=== PATIENT | female | born 1975 | race Two or more races ===

== ENCOUNTER 2024-04-09 09:31 | Outpatient (AMB) | payer MEDICAID, SELFPAY ==
[2024-04-09 10:30] VITALS: BP 148/87; PULSE 75; RESP 18; TEMP 36.7; O2SAT 98; BMI 38.8
--- NOTE | 2024-04-09 10:30 | ORTHONT_ITS ---
Vital signs 04/09/24 10:30 Height 1.57 m Height Method Measured Weight 96.303 kg Weight Measurement Method Standing Scale BMI 38.8 BP 148/87 H Blood Pressure Source Automatic Cuff Blood Pressure Location Right Upper Arm Position Sitting Respiration 18 Pulse 75 Pulse Source Monitor Temp 98.0 F Temp Source Temporal Artery Scan Pulse Oximetry (%) 98 Oxygen Delivery Method Room Air Med/Allergies Allergies & Medications Allergies No Known Drug Allergies Allergy (Verified 04/09/24 10:35) Medication Reconciliation Unobtainable 04/09/24 [History Confirmed 04/09/24] Exam Exam Patient is in no acute distress and is cooperative with the examination today. Breathing is nonlabored. In no respiratory distress. Bilateral extremities were evaluated and demonstrates sensation intact to light touch. Palpable pedal pulses are present. No significant edema is present. Bilateral hips were examined. The patient has no pain with log roll of the hips. Internal rotation to 30 degrees and external rotation to 30 degrees is painless. Negative FADIR. The left knee was examined. The left knee is in varus alignment. Range of motion from 0-115 degrees. Knee is stable to varus and valgus as well as AP translation with <5mm. Patient has a negative McMurrays. There is no pain with patellofemoral compression and no crepitus noted. The knee is tender to palpation medially. The right knee was also examined. The right knee is in varus alignment. Range of motion from 0-120 degrees. Knee is stable to varus and valgus as well as AP tr anslation with <5mm. Patient has a negative McMurrays. There is no pain with patellofemoral compression and no crepitus noted. The knee is tender to palpation medially. Assessment and Plan Problem List (1) Degenerative arthritis of knee, bilateral: Status: Acute Plan: Patient is a 48-year-old female with bilateral knee pain and bilateral knee arthritis. We will get new x-rays that are weightbearing. We do not have any x-ray reports for us to view here and all her prior x-rays were nonweightbearing. It sounds like she has tried anti-inflammatories and injections and they are no longer working. We will get new x-rays to see the severity of the arthritis and go from there. She is on the other side so we did discuss weight loss as well Office Procedures S Level of Care Nursing/Assessment Patient Status: Initial/New Patient Nursing Assessment/Reassesment: Medication Reconciliation, Update PMH in EMR and Vital Signs Coordination of Care: Complex Care and Chronic Disease 1-5, Education Complex Pt/Fam, Consent,records obtained, informed consent, 1 Ins Authorization, Lab and Imaging orders, Results/Orders obtained and Staff clarify orders New Patient Charge New Patient Point Assignment: [id number] New Patient Point Charge: SUPERVISOR CLOTH WINDING Level 4 ([id number]) MA Intake Visit Data Collection New Patient or Established: New Patient (never been to [facility]) Reason for Visit:: BILATERAL KNEE PAIN Seen by Clinical Staff ONLY (RN/MA): No Verbal consent obtained for Telemed visit?: No Ash Collector Required: Yes PCP or OBGYN visit in last 3 months: Yes Hx Now: No Do You Feel Safe at Home: Yes Authorities Contacted: N/A Questionairres Past Medical History Past Medical History Have you ever been diagnosed with any of the following: Subjective Visit Visit for: new patient and knee Immunization / Flu Flu Vaccine in the Last 12 Months: Yes Flu Vaccine Exclusion Criteria: Already Received History of Present Illness Chief complaint: BILATERAL KNEE PAIN Date of injury / onset of symptoms: 3 YEARS With patient is a 48-year-old female with bilateral knee pain. She is not working currently. She has had 3 injections in the past with the last one not working very well. She is on an unknown anti-inflammatory as well. The right knee pain is worse than the left. She reports the pain is excruciating is affecting her quality life and happiness Personal History Occupation: UNEMPLOYED Red flag PMH: BMI BMI Counceling provided: Yes Pain Pain level (0-10): 10 Pain duration: CONSTANT Pain location: inside (medial), outside (lateral), anterior and posterior Pain quality: sharp, dull, aching and burning Pain timing: increases with activity and stairs Associated signs & symptoms: stiffness Ambulatory data Ambulatory device: none Treatments Number of previous injections: 4 Improvement with previous injections: No Number of Physical Therapy sessions: 0 Improvement with PT: No Review of Systems Review of Systems: All systems negative unless otherwise noted in HPI.
== END 2024-04-09 10:37 | disposition home or self-care (01) ==
PROVIDERS: Supervising Provider Orthopaedic Surgery Adult Reconstructive Orthopaedic Surgery; Visit Provider Orthopaedic Surgery Adult Reconstructive Orthopaedic Surgery
DX: M17.0 Bilateral primary osteoarthritis of knee (principal); M25.562 Pain in left knee; M25.561 Pain in right knee
CPT/HCPCS: 99204; G0463

== ENCOUNTER 2024-04-23 11:16 | Outpatient (AMB) | payer MEDICAID, SELFPAY ==
--- NOTE | 2024-04-23 10:48 | PD.ORTHTELE ---
Med/Allergies Allergies & Medications Allergies No Known Drug Allergies Allergy (Verified 04/23/24 10:48) Medication Reconciliation Unobtainable 04/09/24 [History Confirmed 04/23/24] Subjective Visit Visit for: follow up visit and x-rays Immunization / Flu Flu Vaccine in the Last 12 Months: Yes Flu Vaccine Exclusion Criteria: Already Received History of Present Illness Chief complaint: F/U XRAYS Patient is a 48-year-old female with bilateral knee pain. She is here for x-rays results. We discussed that she has severe arthritis. She has tried injections in the past Pain Pain level (0-10): 8 Pain duration: ALL DAY Pain location: inside (medial), outside (lateral) and anterior Pain quality: sharp, dull and aching Pain timing: increases with activity Associated signs & symptoms: stiffness Ambulatory data Ambulatory device: cane Treatments Improvement with previous injections: No Improvement with PT: No Improvement with NSAIDS: no Review of Systems Review of Systems: All systems negative unless otherwise noted in HPI. Assessment and Plan Problem List (1) Degenerative arthritis of knee, bilateral: Status: Acute Plan: Patient is a 48-year-old female with bilateral knee pain and bilateral knee arthritis. We discussed both nonoperative and operative options. We will continue with conservative treatment including cortisone injections at this time. We will see her for follow-up of bilateral knee cortisone injections. She will need authorization for this. Office Procedures GNS Level of Care Nursing/Assessment Patient Status: Established Patient Nursing Assessment/Reassesment: Medication Reconciliation, Update PMH in EMR and Vital Signs Coordination of Care: Complex Care and Chronic Disease 1-5, Education Complex Pt/Fam, Consent,records obtained, informed consent, Results/Orders obtained and Staff clarify orders Special Needs: Language special needs Established Patient Charge Established Patient Point Assignment: 95 Telehealth Telemed Phone/Video with patient at home & Dr,PA,GEOTECHNICAL DEPARTMENT MANAGER: Yes
== END 2024-04-23 11:21 | disposition home or self-care (01) ==
LOC: HODSRG 11:16
PROVIDERS: PCP Physician Assistant; Referring Provider Physician Assistant; Supervising Provider Orthopaedic Surgery Adult Reconstructive Orthopaedic Surgery; Visit Provider Orthopaedic Surgery Adult Reconstructive Orthopaedic Surgery
DX: M17.0 Bilateral primary osteoarthritis of knee (principal); M25.562 Pain in left knee; M25.561 Pain in right knee
CPT/HCPCS: 99212; J3301; J3490; G0463

== ENCOUNTER 2024-05-13 14:06 | Outpatient (AMB) | payer MEDICAID, SELFPAY ==
--- NOTE | 2024-05-13 14:20 | ORTHONT_ITS ---
Vital signs 05/13/24 14:22 Height 1.57 m Height Method Stated Weight 98.486 kg Weight Measurement Method Standing Scale BMI 39.9 BP 142/83 H Blood Pressure Source Automatic Cuff Blood Pressure Location Left Upper Arm Position Sitting Respiration 19 Pulse 80 Pulse Source Monitor Temp 98.2 F Temp Source Temporal Artery Scan Pulse Oximetry (%) 96 Oxygen Delivery Method Room Air Med/Allergies Allergies & Medications Allergies No Known Drug Allergies Allergy (Verified 05/13/24 14:23) Medication Reconciliation Unobtainable 04/09/24 [History Confirmed 05/13/24] Exam Exam Patient is in no acute distress and is cooperative with the examination today. Breathing is nonlabored. In no respiratory distress. Bilateral extremities were evaluated and demonstrates sensation intact to light touch. Palpable pedal pulses are present. No significant edema is present. Bilateral hips were examined. The patient has no pain with log roll of the hips. Internal rotation to 30 degrees and external rotation to 30 degrees is painless. Negative FADIR. The left knee was examined. The left knee is in varus alignment. Range of motion from 0-115 degrees. Knee is stable to varus and valgus as well as AP translation with <5mm. Patient has a negative McMurrays. There is no pain with patellofemoral compression and no crepitus noted. The knee is tender to palpation medially. The right knee was also examined. The right knee is in varus alignment. Range of motion from 0-120 degrees. Knee is stable to varus and valgus as well as AP translation with <5mm. Patient has a negative McMurrays. There is no pain with patellofemoral compression and no crepitus noted. The knee is tender to palpation medially. Xrays demosntrate bilateral joint space narrowing and osteophytes Assessment and Plan Problem List (1) Degenerative arthritis of knee, bilateral: Status: Acute Plan: Patient is a 48-year-old female with bilateral knee pain and bilateral knee arthritis. We discussed both nonoperative and operative options. We will continue with conservative treatment including cortisone injections at this time. We will see her for follow-up of bilateral knee cortisone injections. Office Procedures GNS Level of Care Nursing/Assessment Patient Status: Established Patient Nursing Assessment/Reassesment: Medication Reconciliation, Update PMH in EMR and Vital Signs Coordination of Care: Complex Care and Chronic Disease 1-5, Education Complex Pt/Fam, Consent,records obtained, informed consent, Results/Orders obtained and Staff clarify orders Established Patient Charge Established Patient Point Assignment: 95 Established Patient Point Charge: EP Level 3 (80-115) Questionairres Past Medical History Past Medical History Have you ever been diagnosed with any of the following: Subjective Visit Visit for: new patient and knee Immunization / Flu Flu Vaccine in the Last 12 Months: Yes Flu Vaccine Exclusion Criteria: Already Received History of Present Illness Chief complaint: BILATERAL KNEE PAIN Date of injury / onset of symptoms: 3 YEARS With patient is a 48-year-old female with bilateral knee pain. She is not working currently. She has had 3 injections in the past with the last one not working very well. She is on an unknown anti-inflammatory as well. The right knee pain is worse than the left. She reports the pain is excruciating is affecting her quality life and happiness Personal History Occupation: UNEMPLOYED Red flag PMH: BMI BMI Counceling provided: Yes Pain Pain level (0-10): 10 Pain duration: CONSTANT Pain location: inside (medial), outside (lateral), anterior and posterior Pain quality: sharp, dull, aching and burning Pain timing: increases with activity and stairs Associated signs & symptoms: stiffness Ambulatory data Ambulatory device: none Treatments Number of previous injections: 4 Improvement with previous injections: No Number of Physical Therapy sessions: 0 Improvement with PT: No Review of Systems Review of Systems: All systems negative unless otherwise noted in HPI.
--- NOTE | 2024-05-13 14:21 | ORTHONT_ITS ---
Vital signs 05/13/24 14:22 Height 1.57 m Height Method Stated Weight 98.486 kg Weight Measurement Method Standing Scale BMI 39.9 BP 142/83 H Blood Pressure Source Automatic Cuff Blood Pressure Location Left Upper Arm Position Sitting Respiration 19 Pulse 80 Pulse Source Monitor Temp 98.2 F Temp Source Temporal Artery Scan Pulse Oximetry (%) 96 Oxygen Delivery Method Room Air Med/Allergies Allergies & Medications Allergies No Known Drug Allergies Allergy (Verified 05/13/24 14:23) Medication Reconciliation Unobtainable 04/09/24 [History Confirmed 05/13/24] Exam Exam Patient is in no acute distress and is cooperative with the examination today. Breathing is nonlabored. In no respiratory distress. Bilateral extremities were evaluated and demonstrates sensation intact to light touch. Palpable pedal pulses are present. No significant edema is present. Bilateral hips were examined. The patient has no pain with log roll of the hips. Internal rotation to 30 degrees and external rotation to 30 degrees is painless. Negative FADIR. The left knee was examined. The left knee is in varus alignment. Range of motion from 0-115 degrees. Knee is stable to varus and valgus as well as AP translation with <5mm. Patient has a negative McMurrays. There is no pain with patellofemoral compression and no crepitus noted. The knee is tender to palpation medially. The right knee was also examined. The right knee is in varus alignment. Range of motion from 0-120 degrees. Knee is stable to varus and valgus as well as AP translation with <5mm. Patient has a negative McMurrays. There is no pain with patellofemoral compression and no crepitus noted. The knee is tender to palpation medially. Xrays demosntrate bilateral joint space narrowing and osteophytes Assessment and Plan Problem List (1) Degenerative arthritis of knee, bilateral: Status: Acute Plan: Patient is a 48-year-old female with bilateral knee pain and bilateral knee arthritis. We discussed both nonoperative and operative options. We will continue with conservative treatment including cortisone injections at this time. Recommend knee cortisone injections as patient would like to proceed with conservative treatment at this time. The risks and benefits of the procedure were reviewed with the patient and patient gave verbal consent to continue with the procedure. Procedure: performed by Dr. Lane Using sterile technique the Bilateral knees were thoroughly prepped with alcohol, and approximately 1 cc of Kenalog 40 mg/mL and 4 cc of 1% lidocaine was injected into each knee without resistance into the medial tibial femoral joint space. The patient tolerated the procedure. Office Procedures GNS Level of Care Nursing/Assessment Patient Status: Established Patient Nursing Assessment/Reassesment: Medication Reconciliation, Update PMH in EMR and Vital Signs Coordination of Care: Complex Care and Chronic Disease 1-5, Education Complex Pt/Fam, Consent,records obtained, informed consent, Results/Orders obtained and Staff clarify orders Established Patient Charge Established Patient Point Assignment: 95 Established Patient Point Charge: EP Level 3 (80-115) Surgical Proc/IM SQ injection Major Surgical Procedure: Yes (BILATERAL KNEE INJECTION) Medication Given Medication Given Medication Given: Yes Documented Dose Given: 8 Route: Infiitration Medication Given Medication Given Medication Given: Yes Documented Dose Given: 2 Route: Infiitration Office Meds Xylocaine 10 mg/mL (1 %) injection solution Performing Provider: Margarito Lane MD Performing Location: [facility] Administered by: Margarito Lane MD on 05/13/24 14:24 Dose Route Admin Location Dispensed Lot Number Expiration Date [facility] Extrusion Engineer 40 mL Infiltration 40 mL [id number] 07/29/27 05840-763-43 [facility] triamcinolone acetonide 40 mg/mL suspension for injection Performing Provider: Margarito Lane MD Performing Location: [facility] Administered by: Margarito Lane MD on 05/13/24 14:24 Dose Route Admin Location Dispensed Lot Number Expiration Date [facility] Extrusion Engineer 80 mg intra-articular 2 mL [id number] 08/27/25 4223-9779-15 [facility] [place] Intake Visit Data Collection New Patient or Established: Established Patient (seen at [facility] within 3 years) Reason for Visit:: BILATERAL KNEE PAIN/XRAY RESULTS/REQ INJ Seen by Clinical Staff ONLY (RN/MA): No Credit Clerk Required: Yes PCP or OBGYN visit in last 3 months: Yes Hx Now: No Do You Feel Safe at Home: Yes Authorities Contacted: N/A Questionairres Past Medical History Past Medical History Have you ever been diagnosed with any of the following: Subjective Visit Visit for: follow up visit, knee (BILATERAL) and x-rays (RESULTS) Immunization / Flu Flu Vaccine in the Last 12 Months: No Flu Vaccine Exclusion Criteria: No Exclusion Criteria History of Present Illness Chief complaint: BILATERAL KNEE PAIN Date of injury / onset of symptoms: 3 YEARS With patient is a 48-year-old female with bilateral knee pain. She is not working currently. She has had 3 injections in the past with the last one not working very well. She is on an unknown anti-inflammatory as well. The right knee pain is worse than the left. She reports the pain is excruciating is affecting her quality life and happiness Personal History Occupation: UNEMPLOYED Red flag PMH: BMI BMI Counceling provided: Yes Pain Pain level (0-10): 8 Pain duration: ALL DAY Pain location: inside (medial) and anterior Pain quality: dull and aching Pain timing: night, increases with activity and stairs Associated signs & symptoms: weakness Ambulatory data Ambulatory device: none Treatments Number of previous injections: 4 Improvement with previous injections: No Number of Physical Therapy sessions: 0 Improvement with PT: No Improvement with NSAIDS: no Review of Systems Review of Systems: All systems negative unless otherwise noted in HPI.
[2024-05-13 14:22] VITALS: BP 142/83; PULSE 80; RESP 19; TEMP 36.8; O2SAT 96; BMI 39.9
== END 2024-05-13 14:29 | disposition home or self-care (01) ==
LOC: HODSRG 14:06
PROVIDERS: PCP Physician Assistant; Referring Provider Physician Assistant; Supervising Provider Orthopaedic Surgery Adult Reconstructive Orthopaedic Surgery; Visit Provider Orthopaedic Surgery Adult Reconstructive Orthopaedic Surgery
DX: M17.0 Bilateral primary osteoarthritis of knee (principal); M25.562 Pain in left knee; M25.561 Pain in right knee
CPT/HCPCS: 20610; 99213; J3301; J3490; G0463

== ENCOUNTER 2024-06-04 14:37 | Outpatient (AMB) | payer MEDICAID, SELFPAY ==
--- NOTE | 2024-06-04 12:01 | ORTHONT_ITS ---
Med/Allergies Allergies & Medications Allergies No Known Drug Allergies Allergy (Verified 06/04/24 12:02) Medication Reconciliation Unobtainable 04/09/24 [History Confirmed 06/04/24] Subjective Visit Visit for: follow up visit and knee Immunization / Flu Flu Vaccine in the Last 12 Months: No Flu Vaccine Exclusion Criteria: No Exclusion Criteria History of Present Illness Chief complaint: Bilateral knee pain Ha is a pleasant 48-year-old female with bilateral knee pain and bilateral knee arthritis. We discussed nonoperative treatment including anti- inflammatories injections. She is failed conservative treatment including injections in the past. She reports that is now 3 weeks later the injections have provided very minimal relief. She is here to discuss surgical options on the phone. Pain Pain level (0-10): 9 Pain duration: ALL DAY Pain location: inside (medial) and anterior Pain quality: sharp, dull and aching Pain timing: increases with activity and stairs Associated signs & symptoms: none Ambulatory data Ambulatory device: none Treatments Improvement with previous injections: No Improvement with PT: No Improvement with NSAIDS: no Review of Systems Review of Systems: All systems negative unless otherwise noted in HPI. Assessment and Plan Problem List (1) Degenerative arthritis of knee, bilateral: Status: Acute Plan: Patient is a 48-year-old female with bilateral knee pain and bilateral knee arthritis. We discussed both nonoperative and operative options. She has severe arthritis on x-rays and is failed conservative treatment. The pain she reports is miserable and she is looking for surgical treatment option. We thus discussed total knee replacement is a reasonable option. I would like to see her in person as we will need to have a lengthy discussion that she is on the younger side for a total knee replacement. Office Procedures GNS Level of Care Nursing/Assessment Patient Status: Established Patient Nursing Assessment/Reassesment: Medication Reconciliation, Update PMH in EMR and Vital Signs Coordination of Care: Complex Care and Chronic Disease 1-5, Education Complex Pt/Fam, Consent,records obtained, informed consent, Results/Orders obtained and Staff clarify orders Special Needs: Language special needs Established Patient Charge Established Patient Point Assignment: 95 Telehealth Telemed Phone/Video with patient at home & Dr,PA,SALES PROPERTY MANAGER: Yes
== END 2024-06-04 14:59 | disposition home or self-care (01) ==
LOC: HODSRG 14:37
PROVIDERS: PCP Physician Assistant; Referring Provider Physician Assistant; Supervising Provider Orthopaedic Surgery Adult Reconstructive Orthopaedic Surgery; Visit Provider Orthopaedic Surgery Adult Reconstructive Orthopaedic Surgery
DX: M17.0 Bilateral primary osteoarthritis of knee (principal)
CPT/HCPCS: 99212; G0463

== ENCOUNTER 2024-06-22 08:26 | Outpatient (AMB) | payer MEDICAID, SELFPAY ==
[2024-06-22 08:36] VITALS: BP 138/82; PULSE 63; RESP 19; TEMP 37.4; O2SAT 99; BMI 38.9
--- NOTE | 2024-06-22 08:36 | PD.ORTHCLVIS ---
Vital signs 06/22/24 08:36 Height 1.57 m Height Method Measured Weight 95.906 kg Weight Measurement Method Standing Scale BMI 38.9 BP 138/82 H Blood Pressure Source Automatic Cuff Blood Pressure Location Left Upper Arm Position Sitting Respiration 19 Pulse 63 Pulse Source Monitor Temp 99.4 F Temp Source Oral Pulse Oximetry (%) 99 Oxygen Delivery Method Room Air Med/Allergies Allergies & Medications Allergies No Known Drug Allergies Allergy (Verified 06/22/24 08:37) Medication Reconciliation Unobtainable 04/09/24 [History Confirmed 06/22/24] Exam Exam Patient is in no acute distress and is cooperative with the examination today. Breathing is nonlabored. In no respiratory distress. Bilateral extremities were evaluated and demonstrates sensation intact to light touch. Palpable pedal pulses are present. No significant edema is present. Bilateral hips were examined. The patient has no pain with log roll of the hips. Internal rotation to 30 degrees and external rotation to 30 degrees is painless. Negative FADIR. The left knee was examined. The left knee is in varus alignment. Range of motion from 0-115 degrees. Knee is stable to varus and valgus as well as AP translation with <5mm. Patient has a negative McMurrays. There is no pain with patellofemoral compression and no crepitus noted. The knee is tender to palpation medially. The right knee was also examined. The right knee is in varus alignment. Range of motion from 0-120 degrees. Knee is stable to varus and valgus as well as AP translation with <5mm. Patient has a negative McMurrays. There is no pain with patellofemoral compression and no crepitus noted. The knee is tender to palpation medially. Xrays demonstrate bilateral joint space narrowing and complete obliteration of the medial joint space and osteophytes with varus deformity Assessment and Plan Problem List (1) Degenerative arthritis of knee, bilateral: Status: Acute Plan: Patient is a 48-year-old female with bilateral knee pain and bilateral knee arthritis. We discussed both nonoperative and operative options. She has severe arthritis on x-rays and has failed conservative treatment including weight loss, NSAIDs, and multiple cortisone injections. The pain she reports is miserable and she is looking for surgical treatment option. We thus discussed total knee replacement is a reasonable option but that she is on the young side and is at high risk for revision in the future due to her age. We will start on the right side as this is worse. The nature and purpose of the total knee replacement, alternative method(s) of treatment, the material risks involved, and the possibility of complications were fully explained to the patient. The patient does NOT have any of the following contraindications to TKA: - Active infection of the knee joint, OR - Active systemic bacteremia, OR - Active skin infection or open wound at surgical site, OR - Neuropathic arthritis, OR - Severe, rapidly progressive neurological disease, OR - Severe medical condition that makes risks of surgery outweigh the potential benefit The patient was told the most common risks and complications associated with a total knee replacement include, but are not limited to: blood clots in the leg, fatal pulmonary embolism, dislocation of the prosthesis, intraoperative and postoperative fractures of the femur or tibia, infection, failure of the prosthesis or grafting materials, complications from anesthesia, reactions to blood transfusions, postoperative leg length inequality, instability of the knee replacement, nerve damage or injury, vascular injury, delayed wound healing, infection, other injury or even . In addition, there are risks associated with anesthesia given during this operation. Also, the patient was told that after undergoing a total knee replacement there may still be persistent pain or disability. The patient was informed that the success of this operation in part depends upon the mechanical devices which are going to be implanted and that these devices can fail or malfunction, and may need to be repaired or replaced and there are no guarantees as to the longevity of this device or its parts and that it or its parts could fail prematurely. The patient was also notified that during the course of surgery, there may be a need to use bone graft from donors, and that any bone graft used will be carefully screened for communicable diseases, including AIDS, hepatitis, Colton-Creutzfeldt, or other diseases, but despite the screening procedures, there is a small chance that they could contract one of these diseases. Finally, the patient was asked to follow completely and fully with all advice and recommended treatments, and that recovery and ultimate outcome are affected by their compliance with recommended treatment. We discussed the risks, benefits and treatment alternatives, and the patient is interested in proceeding with surgery. We will try to set this up as expeditiously as possible. Office Procedures GNS Level of Care Nursing/Assessment Patient Status: Established Patient Nursing Assessment/Reassesment: Medication Reconciliation, Update PMH in EMR and Vital Signs Coordination of Care: Complex Care/Chronic Disease 5 or more, Education Complex Pt/Fam, Consent,records obtained, informed consent and Staff clarify orders Special Needs: Language special needs Established Patient Charge Established Patient Point Assignment: 100 Established Patient Point Charge: EP Level 3 (80-115) MA Intake Visit Data Collection New Patient or Established: Established Patient (seen at [facility] within 3 years) Reason for Visit:: FOLLOW UP BILATERAL KNEE PAIN Computer Systems Consultant Required: Yes Computer Systems Consultant's name/title: RIVERA DE OLIVEIRA MA Do You Feel Safe at Home: Yes Questionairres Past Medical History Past Medical History Have you ever been diagnosed with any of the following: Respiratory Problems Smoking: No Subjective Visit Visit for: follow up visit, knee (BILATERAL) and x-rays (RESULTS) Immunization / Flu Flu Vaccine in the Last 12 Months: No Flu Vaccine Exclusion Criteria: No Exclusion Criteria History of Present Illness Chief complaint: BILATERAL KNEE PAIN Date of injury / onset of symptoms: 3 YEARS With patient is a 48-year-old female with bilateral knee pain of approximately equal severity. She is not working currently. She has had over 5 injections in the past with the last one not working very long. She is on multiple antiinflammatories and has failed physical therapy in the past. She has also triedf to lose weight. The right knee pain is worse than the left. She reports the pain is excruciating is affecting her quality life and happiness Personal History Occupation: UNEMPLOYED Red flag PMH: BMI and none BMI Counceling provided: Yes Pain Pain level (0-10): 8 Pain duration: ALL DAY Pain location: inside (medial) and anterior Pain quality: dull, aching and tingling Pain timing: night, increases with activity and stairs Associated signs & symptoms: weakness and none Ambulatory data Ambulatory device: none Treatments Number of previous injections: 4 Improvement with previous injections: No Number of Physical Therapy sessions: 0 Improvement with PT: No Improvement with NSAIDS: no Review of Systems Review of Systems: All systems negative unless otherwise noted in HPI.
== END 2024-06-22 08:44 | disposition home or self-care (01) ==
LOC: HODSRG 08:26
PROVIDERS: PCP Physician Assistant; Referring Provider Physician Assistant; Supervising Provider Orthopaedic Surgery Adult Reconstructive Orthopaedic Surgery; Visit Provider Orthopaedic Surgery Adult Reconstructive Orthopaedic Surgery
DX: M17.0 Bilateral primary osteoarthritis of knee (principal); M25.562 Pain in left knee; M25.561 Pain in right knee
CPT/HCPCS: 99213; G0463

== ENCOUNTER 2024-07-12 13:08 | Outpatient (AMB) | payer MEDICAID, SELFPAY ==
[2024-07-12 13:18] VITALS: BP 134/77; PULSE 65; RESP 19; TEMP 36.9; O2SAT 19; BMI 39.2
--- NOTE | 2024-07-12 13:18 | ORTHONT_ITS ---
Vital signs 07/12/24 13:18 Height 1.57 m Height Method Stated Weight 96.644 kg Weight Measurement Method Standing Scale BMI 39.2 BP 134/77 H Blood Pressure Source Automatic Cuff Blood Pressure Location Right Upper Arm Position Sitting Respiration 19 Pulse 65 Pulse Source Monitor Temp 98.4 F Temp Source Oral Pulse Oximetry (%) 19 L Oxygen Delivery Method Room Air Med/Allergies Allergies & Medications Allergies No Known Drug Allergies Allergy (Verified 07/12/24 13:19) Medication Reconciliation Unobtainable 04/09/24 [History Confirmed 07/12/24] Exam Exam Patient is in no acute distress and is cooperative with the examination today. Breathing is nonlabored. In no respiratory distress. Bilateral extremities were evaluated and demonstrates sensation intact to light touch. Palpable pedal pulses are present. No significant edema is present. Bilateral hips were examined. The patient has no pain with log roll of the hips. Internal rotation to 30 degrees and external rotation to 30 degrees is painless. Negative FADIR. The left knee was examined. The left knee is in varus alignment. Range of motion from 0-115 degrees. Knee is stable to varus and valgus as well as AP translation with <5mm. Patient has a negative McMurrays. There is no pain with patellofemoral compression and no crepitus noted. The knee is tender to palpation medially. The right knee was also examined. The right knee is in varus alignment. Range of motion from 0-120 degrees. Knee is stable to varus and valgus as well as AP translation with <5mm. Patient has a negative McMurrays. There is no pain with patellofemoral compression and no crepitus noted. The knee is tender to palpation medially. Xrays demonstrate bilateral joint space narrowing and complete obliteration of the medial joint space and osteophytes with varus deformity Assessment and Plan Problem List (1) Degenerative arthritis of knee, bilateral: Status: Acute Plan: Patient is a 48-year-old female with bilateral knee pain and bilateral knee arthritis. We discussed both nonoperative and operative options. She has severe arthritis on x-rays and has failed conservative treatment including weight loss, NSAIDs, and multiple cortisone injections. The pain she reports is miserable and she is looking for surgical treatment option. We thus discussed total knee replacement is a reasonable option but that she is on the young side and is at high risk for revision in the future due to her age. We will start on the right side as this is worse. The nature and purpose of the total knee replacement, alternative method(s) of treatment, the material risks involved, and the possibility of complications were fully explained to the patient. The patient does NOT have any of the following contraindications to TKA: - Active infection of the knee joint, OR - Active systemic bacteremia, OR - Active skin infection or open wound at surgical site, OR - Neuropathic arthritis, OR - Severe, rapidly progressive neurological disease, OR - Severe medical condition that makes risks of surgery outweigh the potential benefit The patient was told the most common risks and complications associated with a total knee replacement include, but are not limited to: blood clots in the leg, fatal pulmonary embolism, dislocation of the prosthesis, intraoperative and postoperative fractures of the femur or tibia, infection, failure of the prosthesis or grafting materials, complications from anesthesia, reactions to blood transfusions, postoperative leg length inequality, instability of the knee replacement, nerve damage or injury, vascular injury, delayed wound healing, infection, other injury or even . In addition, there are risks associated with anesthesia given during this operation. Also, the patient was told that after undergoing a total knee replacement there may still be persistent pain or disability. The patient was informed that the success of this operation in part depends upon the mechanical devices which are going to be implanted and that these devices can fail or malfunction, and may need to be repaired or replaced and there are no guarantees as to the longevity of this device or its parts and that it or its parts could fail prematurely. The patient was also notified that during the course of surgery, there may be a need to use bone graft from donors, and that any bone graft used will be carefully screened for communicable diseases, including AIDS, hepatitis, Colton-Creutzfeldt, or other diseases, but despite the screening procedures, there is a small chance that they could contract one of these diseases. Finally, the patient was asked to follow completely and fully with all advice and recommended treatments, and that recovery and ultimate outcome are affected by their compliance with recommended treatment. We discussed the risks, benefits and treatment alternatives, and the patient is interested in proceeding with surgery. We will try to set this up as expeditiously as possible. Office Procedures GNS Level of Care Nursing/Assessment Patient Status: Established Patient Nursing Assessment/Reassesment: Medication Reconciliation, Update PMH in EMR and Vital Signs Coordination of Care: Complex Care/Chronic Disease 5 or more, Education Complex Pt/Fam, Consent,records obtained, informed consent, Results/Orders obtained and Staff clarify orders Established Patient Charge Established Patient Point Assignment: 105 Established Patient Point Charge: EP Level 3 (80-115) MA Intake Visit Data Collection New Patient or Established: Established Patient (seen at [facility] within 3 years) Reason for Visit:: PRE OP RIGHT TKA Heel Attacher Wood Required: Yes Heel Attacher Wood's name/title: DAUGHTER Do You Feel Safe at Home: Yes Questionairres Past Medical History Past Medical History Have you ever been diagnosed with any of the following: Respiratory Problems Smoking: No Subjective Visit Visit for: follow up visit and knee Immunization / Flu Flu Vaccine in the Last 12 Months: No Flu Vaccine Exclusion Criteria: No Exclusion Criteria History of Present Illness Chief complaint: PRE OOP RIGHT TKA Date of injury / onset of symptoms: 3 YEARS With patient is a 48-year-old female with bilateral knee pain of approximately equal severity. She is not working currently. She has had over 5 injections in the past with the last one not working very long. She is on multiple antiinflammatories and has failed physical therapy in the past. She has also triedf to lose weight. The right knee pain is worse than the left. She reports the pain is excruciating is affecting her quality life and happiness Personal History Occupation: UNEMPLOYED Red flag PMH: none BMI Counceling provided: Yes Pain Pain level (0-10): 8 Pain duration: CONSTANT Pain location: inside (medial) and outside (lateral) Pain quality: dull, aching and tingling Pain timing: night, increases with activity and stairs Associated signs & symptoms: none Ambulatory data Ambulatory device: none Treatments Number of previous injections: 4 Improvement with previous injections: No Number of Physical Therapy sessions: 0 Improvement with PT: No Improvement with NSAIDS: no Review of Systems Review of Systems: All systems negative unless otherwise noted in HPI.
== END 2024-07-12 13:40 | disposition home or self-care (01) ==
LOC: HODSRG 13:08
PROVIDERS: PCP Physician Assistant; Referring Provider Physician Assistant; Supervising Provider Orthopaedic Surgery Adult Reconstructive Orthopaedic Surgery; Visit Provider Orthopaedic Surgery Adult Reconstructive Orthopaedic Surgery
DX: M17.0 Bilateral primary osteoarthritis of knee (principal); M25.562 Pain in left knee; M25.561 Pain in right knee
CPT/HCPCS: 99213; G0463

== ENCOUNTER → 2024-07-12 | Outpatient (CLI) | payer MEDICAID, SELFPAY ==
--- NOTE | 2024-07-12 14:42 | XR_ITS ---
Examination: CT right lower extremity, without contrast. 2-D sagittal reconstructions. 2-D coronal reconstructions. 3-D reconstructions. Date and time of exam:July 12, 2024 1607 hours INDICATIONS: Diagnosis unilateral osteoarthritis right knee knee pain 2 years CTDI: vol (mGy):14.9 DLP: (mGycm):974 Technique: Multiple 1.25 mm axial sections of the right lower extremity without intravenous contrast have been obtained. 2-D sagittal and coronal reconstructions have been obtained. 3-D reconstructions have been obtained. Low dose protocols were performed. One or more of the following dose reduction techniques were used; automated exposure control, adjustment of the mA and/or KV according to patient size, use of iterative reconstruction technique. Findings: Mild narrowing right hip joint No hip fracture or dislocation, no avascular necrosis Advanced narrowing medial joint space right knee, coronal image 114 Significant osteoarthritis lateral and patellofemoral joints No fractures IMPRESSION: Advanced narrowing medial joint space right knee Significant osteoarthritis lateral patellofemoral joints right knee
== END | disposition home or self-care (01) ==
PROVIDERS: PCP Physician Assistant; Referring Provider Orthopaedic Surgery Adult Reconstructive Orthopaedic Surgery; Visit Provider Orthopaedic Surgery Adult Reconstructive Orthopaedic Surgery
DX: M17.11 Unilateral primary osteoarthritis, right knee (principal); M25.861 Other specified joint disorders, right knee
CPT/HCPCS: 73700

== ENCOUNTER → 2024-07-21 | Day surgery (SDC) | payer MEDICAID, SELFPAY ==
[2024-07-19 07:45] VITALS: BMI 40.0
[2024-07-19 08:53] LABS: Basophils % (Auto) 0 % (0-2.5); Eosinophils # (Auto) 0.2 Thou/mm3 (0.0-0.5); Eosinophils % (Auto) 2 % (0-10); Hematocrit 39.9 % (36.0-46.0); Hemoglobin 13.3 g/dL (12.0-16.0); Immature Granulocytes % (Auto) 0 % (0-0); Immature Granulocytes Auto 0.04 Thou/mm3 (0.00-0.00); Lymphocytes # (Auto) 2.8 Thou/mm3 (1.0-4.8); Lymphocytes % (Auto) 26 % (10-50); Mean Corpuscular HGB Conc 33.3 g/dl (31.0-37.0); Mean Corpuscular Hemoglobin 29.2 pg (25.0-35.0); Mean Corpuscular Volume 88 fL (80-100); Monocytes # (Auto) 1.1 Thou/mm3 (0.0-0.8); Monocytes % (Auto) 10 % (0-12); Neutrophils # (Auto) 6.6 Thou/mm3 (1.8-7.7); Neutrophils % (Auto) 61 % (37-80); Nucleated Red Blood Cell % 0 /100 WBC (0); Platelet Count 359 Thou/mm3 (140-440); RDW Standard Deviation 39.5 fL (36.4-46.3); Red Blood Count 4.56 Miln/mm3 (4.00-5.20); White Blood Count 10.7 Thou/mm3 (3.6-11.0)
[2024-07-19 09:04] LABS: Alanine Aminotransferase 13 U/L (10-49); Albumin, Serum 4.7 gm/dL (3.5-5.0); Albumin/Globulin Ratio 1.7 (1.2-2.2); Alkaline Phosphatase 103 U/L (46-116); Anion Gap 7 (7-16); Aspartate Amino Transferase 14 U/L (0-34); BUN/Creatinine Ratio 20 Ratio (12-20); Bilirubin,Total 0.4 mg/dL (0.3-1.2); Blood Urea Nitrogen 16 mg/dL (9-23); Calcium 9.8 mg/dL (8.3-10.6); Calcium (Corrected) 9.8 mg/dL (8.5-10.1); Carbon Dioxide 28.4 mMol/L (20.0-31.0); Chloride 104 mMol/L (98-107); Creatinine (Component) 0.8 mg/dL (0.6-1.3); Estimated Creatinine Clearance 90.1 mL/min (>60); Globulin 2.7 gm/dL (2.3-3.5); Glucose 102 mg/dL (74-106); Osmolality,Calculated 278 (275-295); Potassium 3.9 mMol/L (3.4-5.1); Sodium 139 mMol/L (136-145); Total Protein 7.4 gm/dL (5.7-8.2); eGFR > 60 See Note
[2024-07-19 09:06] LABS: INR 0.9 (0.9-1.3); Partial Thromboplastin Time 27.4 Seconds (22.0-36.0); Prothrombin Time 10.4 Seconds (9.0-12.2)
[2024-07-21] VITALS (19 sets, daily range): BP systolic 92–146; BP diastolic 65–83; PULSE 70–98; RESP 12–21; TEMP 36.2–37.2; O2SAT 95–100; BMI 40.4
--- NOTE | 2024-07-21 07:30 | CHAP ---
Prayed with patient for upcoming procedure.
[2024-07-21] MEDS: ACETAMINOPHEN 325 MG TABLET 650 MG PO (07:37)
[2024-07-21] MEDS: MELOXICAM 7.5 MG TABLET PO (07:37)
[2024-07-21] MEDS: PREGABALIN 75 MG CAPSULE PO (07:38)
--- NOTE | 2024-07-21 13:05 | ESOP_ITS ---
Date of Procedure 07/21/24 Pre Op Diagnosis right knee osteoarthritis Post Op Diagnosis right knee osteoarthritis Procedure right total knee replacement james Findings full thickness cartilage loss and osteophytes Procedure Description Indication: The patient is a 48 year old who has a long history of right knee pain. X-rays show degenerative arthritis involving the knee. Over the past several years the patient has had increasing pain, progressive limitation in function. He has failed conservative measures including activity modification, physical therapy, injections, anti-inflammatories, and assistive devices. After a lengthy discussion of the risks and benefits, the patient presents now for total knee replacement. The nature and purpose of the total knee replacement, alternative method(s) of treatment, the material risks involved, and the possibility of complications were fully explained to the patient. The patient was told the most common risks and complications associated with a total knee replacement include, but are not limited to blood clots in the leg, fatal pulmonary embolism, dislocation of the prosthesis, intraoperative and postoperative fractures of the femur or tibia, infection, failure of the prosthesis or grafting materials, complications from anesthesia, reactions to blood transfusions, postoperative leg length inequality, instability of the knee replacement, nerve damage or injury, vascular injury, delayed wound healing, infections, other injury or even . In addition, there are risks associated with anesthesia given during this operation, temporary or permanent numbness on the skin lateral to the incision can be a complication unique to total knee surgery, and kneeling can be painful after knee replacement surgery. Also, the patient was told that after undergoing a total knee replacement there may still be pain or disability. We discussed with the patient that we will be using a robot-assisted technology. We discussed that there is a possibility of converting to manual instrumentation. The patient was informed that the success of this operation in part depends upon the mechanical devices which are going to be implanted and that these devices can fail or malfunction, and may need to be repaired or replaced and there are no guarantees as to the longevity of this device or its part and that it or its parts could fail prematurely. Finally, the patient was asked to follow completely and fully with all advice and recommended treatments, and that recovery and ultimate outcome are affected by their compliance with recommended treatment. Surgical technique: Patient was marked and consented in the pre-operative area. The patient was brought to the operating room and placed on the operating table in a supine position. Prior to positioning, a timeout procedure was performed between the surgeon, the anesthesiologist, and the nursing staff where the patient and the operative side were identified and confirmed. After adequate general anesthetic was obtained, the right lower extremity was prepped and draped in the usual sterile fashion. A weight based dose of Cefazolin were administered within 1 hour prior to incision. The robot was preregistered and calirated before the incision. The extremity was exsanguinated with an esmarch badge and tourniquet inflated to 250mmHg. A midline incision was made. A median parapatellar arthrotomy was made. The patella was subluxed laterally. A medial release was performed to expose the medial tibia. His femoral and tibial pins were placed through an intra incisional manner for both cases. Every effort was made to ensure that the distalmost aspect of the pin was hung in the second cortex. The arrays were then tightened several times to ensure that it was fixed for the remainder of the case. Both femoral and tibial checkpoints were then placed. We then went through the registration process of the bone. We then assessed the knee deformity and attempted to correct it. We also used the robot to aid in judging laxity in both extension and flexion. Final based on laxity and alignment we changed the preoperative assessment to obtain proper proper implant positioning and to correct deformity. Attention was then placed to the tibia. We made a tibial cut using the robot ensuring that both the MCL and the patella tendon were protected with retractors. We then went to the femur and made the posterior cut followed by the anterior cut and the anterior chamfer. The bone was then removed and we made a distal femur cut and a posterior chamfer cut. We verified all cuts. A trial reduction was performed with a size 3 femoral component and a size 2 keeled tibial component. The patella was cut and sized to a [33]. The patella tracked centrally, and no lateral retinacular release was necessary. The trial implants were removed. The arrays, pins, and checkpoints were all removed. We performed a verification that all pins were removed. The cut bone surfaces were lavaged. A size 3 right femoral component, a size 2 keeled tibial component were impacted into position. The knee was felt to be well balanced in the sagittal and coronal plane. The final 2x10 mm cruciate- substituting articular insert was impacted into the tibial tray. The knee was brought out to full extension, flexed up to 120 degrees. It was stable to varus and valgus stress and appropriately balanced in flexion and extension. The wounds were copiously irrigated following deflation of tourniquet. The medial retinaculum was reapproximated with #1 vicryl and quill. The subcutaneous tissues were closed with 0 and 2-0 interrupted Vicryl. The skin was closed with 3-0 Monofilament V loc suture. A sterile dressing was applied. The patient was transferred to a bed and brought to recovery in stable condition. The patient tolerated the procedure well. There were no intraoperative complications. Sponge and needle counts were correct times 2. As the attending surgeon, I attest I was present and performed the entire operation. Grafts/Implants Size 3 CR Femur Size 3 Tibia 10mm poly CS Anesthesia GETA Implants lillian Pathology / specimen None Pathology comment: none Estimated Blood Loss 150 Condition Stable Disposition same day Surgeon Margarito Lane MD Surgical Staff Operation Date: 07/21/24 11:15 Case Staff Anesthesiologist: Zuhair Awad RN First Assistant: Kayla Berry
--- NOTE | 2024-07-21 13:09 | XR_ITS ---
Examination: Right knee 2 views Technique one AP lateral right knee 2 views Exam date and time: July 21, 2024 1403 hours INDICATIONS: Postop knee arthroplasty FINDINGS: Total right knee arthroplasty. Satisfactory alignment No fracture IMPRESSION: Total right knee arthroplasty with satisfactory alignment
--- NOTE | 2024-07-21 13:29 | SUR.PHASEI ---
pt received from OR in recovery bay 4. pt asleep but responds to voice, breathing unlabored on oxymask 8l. v/s stable. pt dressing to right knee cdi. report received from Bryan ACOSTA and Dr. Awad.
[2024-07-21] MEDS: fentaNYL CIT INJ 50 mCg/ML AMP 2ML 25 MCG IV (14:13)
[2024-07-21] MEDS: ACETAMINOPHEN IVPB 1,000 MG/100 ML VIAL 250 MG IV (14:15)
--- NOTE | 2024-07-21 14:45 | SUR.PHASEII ---
pt able to tolerate oral fluids without difficultly swallowing or vomiting.
[2024-07-21] MEDS: MORPHINE SULF INJ 10 MG/ML VIAL 3 MG IV ×2 (14:57→15:20)
[2024-07-21] MEDS: ONDANSETRON INJ 2 MG/ML INJ 2 ML 4 MG IV (15:24)
[2024-07-21] MEDS: HYDROmorphone INJ 2 MG/ML VIAL 0.4 MG IV (16:05)
[2024-07-21] MEDS: RINGERS LACTATED 1000 ML 1,000 ML 999 ML IV (16:50)
--- NOTE | 2024-07-21 16:52 | SUR.PHASEII ---
report from nurse rosemarie. pt failed pt x2. dr richardson notified. does not want to admit. ordered 1 l bolus lr. and try again. dressing remains cdi. vss. daughter at bedside. made aware of plan.
[2024-07-21] MEDS: DEXAMETHASONE SOD PHOS INJ 10 MG/ML VIAL 8 MG IVP (17:10)
--- NOTE | 2024-07-21 18:05 | SUR.PHASEII ---
pt discharged with all belongings via wheel chair. pt alert and oriented. denies pain and nausea. vss. breathing even and unlabored. dressing cdi. good cms noted to all extremities. dc instructions gone over with pt and family. daughter verbalizes understanding. pt cleared by physical therapy trevon. tolerated po fluids.
== END | disposition home or self-care (01) ==
PROVIDERS: Anesthesiology; Referring Provider Orthopaedic Surgery Adult Reconstructive Orthopaedic Surgery; Visit Provider Orthopaedic Surgery Adult Reconstructive Orthopaedic Surgery
PROC: (CPT 27447; principal; 2024-07-21 11:00)
DX: M17.11 Unilateral primary osteoarthritis, right knee (principal); M25.761 Osteophyte, right knee
CPT/HCPCS: 27447; 20985; 36415; 73560; 80053; 85025; 85610; 85730; 97163; A4217; C1713; C1776; J0131; J0690; J1100; J1885; J2250; J2270; J2405; J2704; J2795; J3010; J3490; J7030; J7120; J7999; A4648; A4649; A9270

== ENCOUNTER 2024-07-26 13:31 | Emergency (ER) | payer MEDICAID, SELFPAY ==
[2024-07-26 13:51] VITALS: BP 131/84; PULSE 78; RESP 18; TEMP 37.6; O2SAT 99
--- NOTE | 2024-07-26 14:04 | XR_ITS ---
Examination: CT brain head without contrast. 2-D sagittal coronal reconstructions Date and time of exam:July 18, 2024 1502 hours INDICATIONS: Nausea vomiting headaches arm pain beginning 4 days ago CTDI: vol (mGy):50 DLP: (mGycm):956 Technique: Multiple CT axial sections of the brain have been obtained, 5 mm slice thickness. Contrast has not been administered. 2-D sagittal, coronal reconstructions have been obtained Low dose protocols were performed. One or more of the following dose reduction techniques were used; automated exposure control, adjustment of the mA and/or KV according to patient size, use of iterative reconstruction technique. Findings: No significant ventricular enlargement. Intra-axial or extra-axial hemorrhage density is not seen. No mass effect or midline shift Basal cisterns are not remarkable. Fourth ventricle is midline. Cranial vault intact. Impression: Negative for acute hemorrhage, mass effect or midline shift Significant chronic sphenoid sinusitis Mild maxillary antral sinusitis
--- NOTE | 2024-07-26 14:06 | PD.EDRME ---
Rapid Medical Screening Exam [facility] Arrival date/time: 07/26/24 13:31 48 YR old female presents with concerns for headache nausea and dizziness. Patient reports recent knee replacement on Friday reports symptoms since then. Chief Complaint: Nausea/Vomiting/Diarrhea Time Seen by Provider: 07/26/24 13:54 Vital signs: Vital Signs Temperature 99.7 F 07/26/24 13:51 Pulse Rate 78 07/26/24 13:51 Respiratory Rate 18 07/26/24 13:51 Blood Pressure 131/84 H 07/26/24 13:51 Pulse Oximetry (%) 99 07/26/24 13:51 Oxygen Delivery Method Room Air 07/26/24 13:51
[2024-07-26] MEDS: MECLIZINE HCL 25 MG TABLET 50 MG PO (14:14)
[2024-07-26] MEDS: METOCLOPRAMIDE INJ 5 MG/ML VIAL 2 ML 10 MG IM (14:14)
[2024-07-26 14:29] LABS: Basophils % (Auto) 0 % (0-2.5); Eosinophils # (Auto) 0.3 Thou/mm3 (0.0-0.5); Eosinophils % (Auto) 2 % (0-10); Hematocrit 37.2 % (36.0-46.0); Hemoglobin 12.4 g/dL (12.0-16.0); Immature Granulocytes % (Auto) 1 % (0-0); Immature Granulocytes Auto 0.06 Thou/mm3 (0.00-0.00); Lymphocytes # (Auto) 1.4 Thou/mm3 (1.0-4.8); Lymphocytes % (Auto) 11 % (10-50); Mean Corpuscular HGB Conc 33.3 g/dl (31.0-37.0); Mean Corpuscular Hemoglobin 29.9 pg (25.0-35.0); Mean Corpuscular Volume 90 fL (80-100); Monocytes # (Auto) 0.9 Thou/mm3 (0.0-0.8); Monocytes % (Auto) 7 % (0-12); Neutrophils # (Auto) 10.5 Thou/mm3 (1.8-7.7); Neutrophils % (Auto) 80 % (37-80); Nucleated Red Blood Cell % 0 /100 WBC (0); Platelet Count 361 Thou/mm3 (140-440); Red Blood Count 4.15 Miln/mm3 (4.00-5.20); White Blood Count 13.2 Thou/mm3 (3.6-11.0)
[2024-07-26 14:41] LABS: Collection Type, Urine Clean Catch
[2024-07-26 14:44] LABS: Bilirubin,Urine Negative (Negative); Blood,Urine Negative (Negative); Clarity,Urine Clear (Clear/Hazy); Color,Urine Colorless (Lt Yel-Yel); Culture Indicated,Urine Not Indicated; Glucose, Urine Negative (Negative); Ketones,Urine Negative (Negative); Leukocyte Esterase,Urine Positive (Negative); Nitrite,Urine Negative (Negative); PH,Urine 7.5 (5.0-7.0); Protein,Urine Negative (Neg - Trace); RBC,Urine 1 /hpf (0-3); Specific Gravity,Urine 1.012 (1.001-1.035); Squamous Epithelial Cell,Urine 10 /hpf (0-5); Urobilinogen,Urine Negative mg/dL (0.0-1.0); WBC,Urine 2 /hpf (0-5)
[2024-07-26 14:53] LABS: Alanine Aminotransferase 34 U/L (10-49); Albumin, Serum 4.5 gm/dL (3.5-5.0); Albumin/Globulin Ratio 1.7 (1.2-2.2); Alkaline Phosphatase 112 U/L (46-116); Anion Gap 6 (7-16); Aspartate Amino Transferase 24 U/L (0-34); BUN/Creatinine Ratio 13 Ratio (12-20); Bilirubin,Total 0.4 mg/dL (0.3-1.2); Blood Urea Nitrogen 9 mg/dL (9-23); Calcium 9.7 mg/dL (8.3-10.6); Calcium (Corrected) 9.7 mg/dL (8.5-10.1); Carbon Dioxide 28.9 mMol/L (20.0-31.0); Chloride 100 mMol/L (98-107); Creatinine (Component) 0.7 mg/dL (0.6-1.3); Globulin 2.7 gm/dL (2.3-3.5); Glucose 110 mg/dL (74-106); Osmolality,Calculated 269 (275-295); Potassium 4.2 mMol/L (3.4-5.1); Sodium 135 mMol/L (136-145); Total Protein 7.2 gm/dL (5.7-8.2); Troponin I < 0.002 ng/mL (0.0-0.045); eGFR > 60 See Note
[2024-07-26 17:17] VITALS: BP 118/71; PULSE 90; RESP 17; TEMP 37.3; O2SAT 99
--- NOTE | 2024-07-26 17:45 | PD.EDNV ---
Nausea/Vomit./Diarrhea-RME/HPI General Chief complaint: Nausea/Vomiting/Diarrhea Stated complaint: N/V, PEREZ, & L ARM PAIN X4 DAYS Time Seen by Provider: 07/26/24 13:54 Arrival date/time: 07/26/24 13:31 RME / HPI RME / HPI Narrative: 07/26/24 13:31 48 YR old female presents with concerns for headache nausea and dizziness. Patient reports recent knee replacement on Friday reports symptoms since then. Related Data Home Medications ?Medication ?Instructions ?Recorded ?Confirmed atorvastatin 20 mg tablet 20 mg PO HS 07/19/24 07/21/24 ergocalciferol (vitamin D2) 1,250 1,250 mcg PO QWEEK 07/19/24 07/21/24 mcg (50,000 unit) capsule hydrochlorothiazide 25 mg tablet 25 mg PO DAILY 07/19/24 07/21/24 hydroxyzine HCl 10 mg tablet 10 mg PO Q12H 07/19/24 07/21/24 lisinopril 5 mg tablet 5 mg PO DAILY 07/19/24 07/21/24 meloxicam 15 mg tablet 15 mg PO DAILY 07/19/24 07/21/24 Previous Rx's ?Medication ?Instructions ?Recorded acetaminophen 500 mg tablet 1,000 mg (2 x 500 mg) PO Q6H PRN 07/21/24 (Acetaminophen Extra Strength) pain #90 tabs aspirin 81 mg tablet,delayed 81 mg PO BID #60 tabs 07/21/24 release doxycycline hyclate 100 mg tablet 100 mg PO BID #14 tabs 07/21/24 gabapentin 300 mg capsule 300 mg PO .qhs #30 caps 07/21/24 oxycodone 5 mg tablet 5 mg PO Q6H PRN pain #28 tabs 07/21/24 sennosides 8.6 mg-docusate sodium 1 tab-cap PO QDAY #30 tabs 07/21/24 50 mg tablet (Senna-S) pantoprazole 40 mg tablet,delayed 40 mg PO QDAY #20 tabs 07/26/24 release Allergies Allergy/AdvReac Type Severity Reaction Status Date / Time No Known Drug Allergies Allergy Verified 07/26/24 13:33 Past Medical History Past Medical History NEUROLOGIC: Negative Neurological Disorders or Seizures CARDIAC: Positive Cardiac Disorders, Hypercholesterolemia and Hypertension; Negative Congestive Heart Failure RESPIRATORY: Negative Chronic Obstructive Pulmonary Disease (COPD) or Smoking GASTROINTESTINAL: Positive Gastrointestinal Disorders and Obesity; Negative Hepatitis GENITOURINARY: Negative Genitourinary Disorders or Renal Disease REPRODUCTIVE: Positive Previous Pregnancies (4) MUSCULOSKELETAL: Positive Musculoskeletal Disorders and Arthritis ENDOCRINE: Negative Endocrine Disorders, Diabetes Mellitus Type 1 or Diabetes Mellitus Type 2 HEMATOLOGIC: Positive Blood Disorders and Anemia PSYCHO/SOCIAL: Positive Anxiety OTHER HISTORY: Positive Chicken Pox, Measles and Mumps; Negative Hospitalization, Autoimmune Disease, Shingles, Blood Transfusions, Blood Transfusion Reaction, Anesthesia Reactions or Cancer Family History FAMILY HISTORY: Negative Family Psychiatric Problems, Family Respiratory Disorders, Family Cardiac Disorders, Family Gastrointestinal Problems, Family Cancer, Family Surgery or Family Anesthesia Reaction Surgical History SURGICAL: Positive Tubal Ligation Social History SMOKING STATUS: Never smoker Course Orders Category Date Time Status CT head/brain wo con Stat Exams 07/26/24 14:04 Completed CBC Stat Lab 07/26/24 14:20 Completed CMP [Comprehensive Metabolic Panel] Stat Lab 07/26/24 14:20 Completed Troponin I Stat Lab 07/26/24 14:20 Completed UA, C/S IF [Urinalysis, C/S if Indicated] Stat Lab 07/26/24 14:34 Completed Meclizine HCl [Antivert] Med 07/26/24 14:04 Discontinued 50 mg PO X1 ONE Metoclopramide Inj [Reglan Inj] Med 07/26/24 14:05 Discontinued 10 mg IM X1 ONE Vital Signs Vital signs: Vital Signs Temperature 99.7 F 07/26/24 13:51 Pulse Rate 78 07/26/24 13:51 Respiratory Rate 18 07/26/24 13:51 Blood Pressure 131/84 H 07/26/24 13:51 Pulse Oximetry (%) 99 07/26/24 13:51 Oxygen Delivery Method Room Air 07/26/24 13:51 Nausea/Vomiting/Diarrhea Medications / Prescriptions Medication administrations:: Medication Administration History Discontinued Medications Meclizine HCl (Meclizine Hcl 25 Mg Tablet) 50 mg PO X1 ONE Stop: 07/26/24 14:05 Last Admin: 07/26/24 14:14 Dose: 50 mg Documented By: LINNEA Metoclopramide HCl (Metoclopramide Inj 5 Mg/Ml Vial 2 Ml) 10 mg IM X1 ONE; Protocol Stop: 07/26/24 14:06 Last Admin: 07/26/24 14:14 Dose: 10 mg Documented By: OA Discharge Plan Prescriptions/Referrals Prescriptions/Med Rec: No Action ergocalciferol (vitamin D2) 1,250 mcg (50,000 unit) capsule 1,250 mcg PO QWEEK Patient Comments: Take 1 capsule by mouth once a week TAKE 1 CAPSULE BY MOUTH EVERY WEEK hydroxyzine HCl 10 mg tablet 10 mg PO Q12H Patient Comments: Take 1 tablet by mouth every twelve hours atorvastatin 20 mg tablet 20 mg PO HS meloxicam 15 mg tablet 15 mg PO DAILY Patient Comments: Take 1 tablet by mouth once daily hydrochlorothiazide 25 mg tablet 25 mg PO DAILY Patient Comments: Take 1 tablet by mouth every morning lisinopril 5 mg tablet 5 mg PO DAILY Patient Comments: Take 1 tablet by mouth once a day aspirin 81 mg tablet,delayed release (DR/EC) 81 mg PO BID Qty: 60 0RF acetaminophen [Acetaminophen Extra Strength] 500 mg tablet 1,000 mg PO Q6H MDD 1000mg PRN (Reason: pain) Qty: 90 0RF gabapentin 300 mg capsule 300 mg PO .qhs Qty: 30 0RF doxycycline hyclate 100 mg tablet 100 mg PO BID Qty: 14 0RF oxycodone 5 mg tablet 5 mg PO Q6H MDD 20 PRN (Reason: pain) Qty: 28 0RF Rx Instructions: z96.65 sennosides-docusate sodium [Senna-S] 8.6-50 mg tablet 1 tab-cap PO QDAY Qty: 30 0RF pantoprazole 40 mg tablet,delayed release (DR/EC) 40 mg PO QDAY Qty: 20 0RF Referrals: Cole Cosme PA-C [Primary Care Provider] - In 1 week Patient/Caregiver Discharge Instructions Print Language: Turkmen
--- NOTE | 2024-07-26 18:16 | EDNOTE_ITS ---
<Statement entered by Jeannine Walton MD - 08/01/24 02:09> As co-signing physician, I was present and available for consult prn. I concur with the plan and care as documented by the midlevel provider. ED General RME/HPI General Chief complaint: Nausea/Vomiting/Diarrhea Stated complaint: N/V, PEREZ, & L ARM PAIN X4 DAYS Time Seen by Provider: 07/26/24 13:54 Arrival date/time: 07/26/24 13:31 CC: Dizziness knee pain nausea HPI patient is 3 days status post knee replacement by Dr. Lane at this hospital. Patient has been on OxyContin's, and immediately upon taking them she was dizzy, the patient has avoided the OxyContin's and now has significant knee pain along with the dizziness after restarting on the OxyContin. The daughter at bedside states she contacted Dr. Hart said to cut the OxyContin's in half. Which the patient is tried without success. Currently the patient has pain that is decreased after the daughter gave her 1000 mg of Tylenol at 5 PM. Patient was seen at [facility] yesterday for same complaint was given morphine for which the daughter states the patient was back to normal . Patient is awake alert oriented complaining only of dizziness and knee pain. RME / HPI RME / HPI narrative: 07/26/24 13:31 48 YR old female presents with concerns for headache nausea and dizziness. Patient reports recent knee replacement on Friday reports symptoms since then. Related Data Home Medications ?Medication ?Instructions ?Recorded ?Confirmed atorvastatin 20 mg tablet 20 mg PO HS 07/19/24 5 ergocalciferol (vitamin D2) 1,250 1,250 mcg PO QWEEK 0 07/19/24 07/21/24 mcg (50,000 unit) capsule hydrochlorothiazide 25 mg tablet 25 mg PO DAILY 07/21/24 hydroxyzine HCl 10 mg tablet 10 mg PO Q12H 07/19/24 lisinopril 5 mg tablet 5 mg PO DAILY 07/19/2407/21 meloxicam 15 mg tablet 15 mg PO DAILY 07/19/2406/30 Previous Rx's ?Medication ?Instructions ?Recorded acetaminophen 500 mg tablet 1,000 mg (2 x 500 mg) PO Q 6H PRN 07/21/24 (Acetaminophen Extra Strength) pain #90 tabs aspirin 81 mg tablet,delayed 81 mg PO BID #60 tabs release doxycycline hyclate 100 mg tablet 100 mg PO BID #14 ta bs 07/21/24 gabapentin 300 mg capsule 300 mg PO .qhs #30 caps 06/30 06/22 oxycodone 5 mg tablet 5 mg PO Q6H PRN pain #28 tab s 07/21/24 sennosides 8.6 mg-docusate sodium 1 tab-cap PO QDAY #3 0 tabs 07/21/24 50 mg tablet (Senna-S) pantoprazole 40 mg tablet,delayed 40 mg PO QDAY #20 ta bs 07/26/24 release Allergies Allergy/AdvReac Type Severity Reaction Status Date / Time No Known Drug Allergies Allergy Verified 07/26/24 13:33 Review of Systems Review of Systems Narrative Review of Systems: GEN: No fever, no chills, no weight loss EYES: No discharge, no visual changes, no pain HEENT: No ear pain, no congestion, no sore throat PULM: No shortness of breath, no cough, no congestion CV: No chest pain, no dyspnea on exertion, no palpitations GI: No nausea, no vomiting, no diarrhea, no pain, no constipation : No frequency, no urgency, no dysuria MUSC/SKEL: + joint pain, no back pain SKIN: No rash PSYCH: No hallucinations, no depression HEME/LYMPH: No easy bleeding or bruising tendencies NEURO: No weakness, no headache,+ dizziness Past Medical History Past Medical History NEUROLOGIC: Negative Neurological Disorders or Seizures CARDIAC: Positive Cardiac Disorders, Hypercholesterolemia and Hypertension; Negative Congestive Heart Failure RESPIRATORY: Negative Chronic Obstructive Pulmonary Disease (COPD) or Smoking GASTROINTESTINAL: Positive Gastrointestinal Disorders and Obesity; Negative Hepatitis GENITOURINARY: Negative Genitourinary Disorders or Renal Disease REPRODUCTIVE: Positive Previous Pregnancies (4) MUSCULOSKELETAL: Positive Musculoskeletal Disorders and Arthritis ENDOCRINE: Negative Endocrine Disorders, Diabetes Mellitus Type 1 or Diabetes Mellitus Type 2 HEMATOLOGIC: Positive Blood Disorders and Anemia PSYCHO/SOCIAL: Positive Anxiety OTHER HISTORY: Positive Chicken Pox, Measles and Mumps; Negative Hospitalization, Autoimmune Disease, Shingles, Blood Transfusions, Blood Transfusion Reaction, Anesthesia Reactions or Cancer Family History FAMILY HISTORY: Negative Family Psychiatric Problems, Family Respiratory Disorders, Family Cardiac Disorders, Family Gastrointestinal Problems, Family Cancer, Family Surgery or Family Anesthesia Reaction Surgical History SURGICAL: Positive Tubal Ligation Social History SMOKING STATUS: Never smoker ED Exam Narrative Physical exam: [General: Obese in moderate discomfort but not in any acute distress Head normocephalic HEENT: Eyes pupils are PERRLA EOMs are intact no nystagmus mouth pink dry membranes uvula is midline swallow symmetrical phonation is normal. All other subsystems HEENT are within acceptable limits Neck is supple nontender Chest equal chest rise nontender to palpation Respiratory: Clear to auscultation no wheezes crackles or rubs CV: Rate rhythm is regular no murmurs rubs or clicks Abdomen is distended secondary to body habitus soft nontender no masses positive bowel sounds all 4 quadrants Back: No CVA tenderness no spinous process tenderness from cervical spine thoracic and lumbar spine Skin: Intact no petechiae rash induration ulceration or crepitus Extremities: Right lower extremity: The vertical suture line extending over the patella, Clean, dry, and intact. Incision dressing still intact, no surrounding erythema edema. Decreased range of motion secondary to pain no posterior fossa ecchymosis erythema edema. Range of motion of both ankle and the toes cap refill less than 2 seconds neurosensory intact. Moving all other extremities against resistance cap refill less than 2 seconds neurosensory intact Neuro: Awake alert oriented x3 Glascow coma 15 no focal deficits] Course Course Course Narrative: I suspect the vertigo was secondary to the OxyContin as it seems to parallel when the medication was taken and not taken. Daughter states the patient has a follow-up with Dr. Lane tomorrow in his office this time comfortable discharging the patient home after an IM injection of morphine to give temporary relief. Patient already has a prescription of meclizine which she should continue to stay on to see if this helps mediate the dizziness. Quality Measures none Orders Category Date Time Status CT head/brain wo con Stat Exams 07/26/24 14:04 Completed CBC Stat Lab 07/26/24 14:20 Completed CMP [Comprehensive Metabolic Panel] Stat Lab 07/26/24 14:20 Completed Troponin I Stat Lab 07/26/24 14:20 Completed UA, C/S IF [Urinalysis, C/S if Indicated] Stat Lab 07/26/24 14:34 Completed Meclizine HCl [Antivert] Med 07/26/24 14:04 Discontinued 50 mg PO X1 ONE Metoclopramide Inj [Reglan Inj] Med 07/26/24 14:05 Discontinued 10 mg IM X1 ONE Morphine Inj Med 07/26/24 18:15 Once 5 mg IM X1 ONE Vital Signs Vital signs: Vital Signs Temperature 99.7 F 07/26/24 13:51 Pulse Rate 78 07/26/24 13:51 Respiratory Rate 18 07/26/24 13:51 Blood Pressure 131/84 H 07/26/24 13:51 Pulse Oximetry (%) 99 07/26/24 13:51 Oxygen Delivery Method Room Air 07/26/24 13:51 Discharge Plan Plan Patient Disposition: HOME (Self Care) Patient condition on transfer: Stable Prescriptions/Referrals Prescriptions/Med Rec: No Action ergocalciferol (vitamin D2) 1,250 mcg (50,000 unit) capsule 1,250 mcg PO QWEEK Patient Comments: Take 1 capsule by mouth once a week TAKE 1 CAPSULE BY MOUTH EVERY WEEK hydroxyzine HCl 10 mg tablet 10 mg PO Q12H Patient Comments: Take 1 tablet by mouth every twelve hours atorvastatin 20 mg tablet 20 mg PO HS meloxicam 15 mg tablet 15 mg PO DAILY Patient Comments: Take 1 tablet by mouth once daily hydrochlorothiazide 25 mg tablet 25 mg PO DAILY Patient Comments: Take 1 tablet by mouth every morning lisinopril 5 mg tablet 5 mg PO DAILY Patient Comments: Take 1 tablet by mouth once a day aspirin 81 mg tablet,delayed release (DR/EC) 81 mg PO BID Qty: 60 0RF acetaminophen [Acetaminophen Extra Strength] 500 mg tablet 1,000 mg PO Q6H MDD 1000mg PRN (Reason: pain) Qty: 90 0RF gabapentin 300 mg capsule 300 mg PO .qhs Qty: 30 0RF doxycycline hyclate 100 mg tablet 100 mg PO BID Qty: 14 0RF oxycodone 5 mg tablet 5 mg PO Q6H MDD 20 PRN (Reason: pain) Qty: 28 0RF Rx Instructions: z96.65 sennosides-docusate sodium [Senna-S] 8.6-50 mg tablet 1 tab-cap PO QDAY Qty: 30 0RF pantoprazole 40 mg tablet,delayed release (DR/EC) 40 mg PO QDAY Qty: 20 0RF Referrals: Cole Cosme PA-C [Primary Care Provider] - In 1 week Problem List Clinical Impression: Dizziness, Knee pain Patient/Caregiver Discharge Instructions Education Materials: Vertigo Medicine Tx, Knee Pain Print Language: Frisian Stand Alone Forms: Felicita Award Info., Work/School Release, Patient Portal Info Letter MELVIN/KATIE Supervising Physician ANIYA Supervising Physician: Carroll Power ENP MDM Patient Acuity Low Acuity (complete MDM as needed) Clinical Information Provided by: patient and family Medical Records reviewed [facility] Meds/Rx considered, not ordered None Labs/Rad/Tests considered, not ordered None Chronic Illness/Social Conditions Explain: 3-day old knee replacement EKG EKG not done Labs Lab(s) Interpretation(s): CBC shows leukocytosis of 13.2 no anemia, no thrombocytopenia CMP shows sodium 135 gap of 6 no other electrolyte imbalances BUN and creatinine within acceptable limits no transaminitis or T. bili elevation Urine pH is 7.5 no other acute finding requires emergent or immediate intervention. Imaging Imaging Interpretation(s): CT head interpreted by me read by radiology as negative for any acute finding. Medication Administration(s) Medication Administration History Morphine Sulfate (Morphine Sulf Inj 10 Mg/Ml Vial) 5 mg IM X1 ONE Stop: 07/26/24 18:16 Discontinued Medications Meclizine HCl (Meclizine Hcl 25 Mg Tablet) 50 mg PO X1 ONE Stop: 07/26/24 14:05 Last Admin: 07/26/24 14:14 Dose: 50 mg Documented By: LINNEA Metoclopramide HCl (Metoclopramide Inj 5 Mg/Ml Vial 2 Ml) 10 mg IM X1 ONE; Protocol Stop: 07/26/24 14:06 Last Admin: 07/26/24 14:14 Dose: 10 mg Documented By: LINNEA Diagnosis Differential Diagnosis ED Complaint MDM: Vertigo, side effect of OxyContin, leg cellulitis
[2024-07-26] MEDS: MORPHINE SULF INJ 10 MG/ML VIAL 5 MG IM (18:26)
[2024-07-26 18:30] VITALS: BP 122/76; PULSE 83; RESP 17; TEMP 37.4; O2SAT 99
== END 2024-07-26 18:39 | disposition home or self-care (01) ==
PROVIDERS: Nurse Practitioner Primary Care; Emergency Provider Emergency Medicine; PCP Physician Assistant
DX: R42 Dizziness and giddiness (principal); M25.561 Pain in right knee; R11.2 Nausea with vomiting, unspecified; R51.9 Headache, unspecified; M79.602 Pain in left arm; E78.00 Pure hypercholesterolemia, unspecified; I10 Essential (primary) hypertension; Z96.651 Presence of right artificial knee joint
CPT/HCPCS: 36415; 70450; 80053; 81001; 84484; 85025; 96372; 99284; J2270; J2765; A9270

== ENCOUNTER 2024-07-27 09:07 | Outpatient (AMB) | payer MEDICAID, SELFPAY ==
[2024-07-27 09:40] VITALS: BP 140/84; PULSE 89; RESP 18; TEMP 36.9; O2SAT 97; BMI 38.7
--- NOTE | 2024-07-27 09:40 | PD.ORTHCLVIS ---
Vital signs 07/27/24 09:40 Height 1.57 m Height Method Measured Weight 95.396 kg Weight Measurement Method Standing Scale BMI 38.7 BP 140/84 H Blood Pressure Source Automatic Cuff Blood Pressure Location Right Upper Arm Position Sitting Respiration 18 Pulse 89 Pulse Source Monitor Temp 98.5 F Temp Source Temporal Artery Scan Pulse Oximetry (%) 97 Oxygen Delivery Method Room Air Med/Allergies Allergies & Medications Allergies No Known Drug Allergies Allergy (Verified 07/27/24 09:41) Medication Reconciliation atorvastatin 20 mg tablet 20 mg PO HS 07/19/24 [History Confirmed 07/27/24] ergocalciferol (vitamin D2) 1,250 mcg (50,000 unit) capsule 1,250 mcg PO QWEEK 07/19/24 [History Confirmed 07/27/24] hydrochlorothiazide 25 mg tablet 25 mg PO DAILY 07/19/24 [History Confirmed 07/27/24] hydroxyzine HCl 10 mg tablet 10 mg PO Q12H 07/19/24 [History Confirmed 07/27/24] lisinopril 5 mg tablet 5 mg PO DAILY 07/19/24 [History Confirmed 07/27/24] meloxicam 15 mg tablet 15 mg PO DAILY 07/19/24 [History Confirmed 07/27/24] acetaminophen 500 mg tablet (Acetaminophen Extra Strength) 1,000 mg (2 x 500 mg) PO Q6H PRN pain #90 tabs 07/21/24 [Rx Confirmed 07/27/24] aspirin 81 mg tablet,delayed release 81 mg PO BID #60 tabs 07/21/24 [Rx Confirmed 07/27/24] doxycycline hyclate 100 mg tablet 100 mg PO BID #14 tabs 07/21/24 [Rx Confirmed 07/27/24] gabapentin 300 mg capsule 300 mg PO .qhs #30 caps 07/21/24 [Rx Confirmed 07/27/24] oxycodone 5 mg tablet 5 mg PO Q6H PRN pain #28 tabs 07/21/24 [Rx Confirmed 07/27/24] sennosides 8.6 mg-docusate sodium 50 mg tablet (Senna-S) 1 tab-cap PO QDAY #30 tabs 07/21/24 [Rx Confirmed 07/27/24] pantoprazole 40 mg tablet,delayed release 40 mg PO QDAY #20 tabs 07/26/24 [Rx Confirmed 07/27/24] cyclobenzaprine 5 mg tablet 5 mg PO TID PRN muscle spasm #60 tabs 07/27/24 [Rx] hydrocodone 5 mg-acetaminophen 325 mg tablet 1 tab PO Q6H PRN pain #28 tabs 07/27/24 [Rx] Exam Exam Patient is in no acute distress and is cooperative with the examination today. Breathing is nonlabored. In no respiratory distress. Bilateral extremities were evaluated and demonstrates sensation intact to light touch. Palpable pedal pulses are present. No significant edema is present. Bilateral hips were examined. The patient has no pain with log roll of the hips. Internal rotation to 30 degrees and external rotation to 30 degrees is painless. Negative FADIR. Left knee was examined today. The right knee is in reasonable alignment. Range of motion from 0-120 degrees. Knee is stable to varus and valgus as well as AP translation with <5mm. Patient has a negative McMurrays. There is no pain with patellofemoral compression and no crepitus noted. The knee is nontender to palpation. Right knee incision is clean dry intact. There is minimal swelling Assessment and Plan Problem List (1) Degenerative arthritis of knee, bilateral: Status: Acute Plan: Patient is a 48-year-old female with bilateral knee pain and bilateral knee arthritis. Patient is doing well status post right total knee replacement. She would like an injection of her left knee today as she is significant arthritis Recommend knee cortisone injection as patient would like to proceed with conservative treatment at this time. The risks and benefits of the procedure were reviewed with the patient and patient gave verbal consent to continue with the procedure. Procedure: performed by Dr. Lane Using sterile technique the left knee was thoroughly prepped with alcohol, and approximately 1 cc of Kenalog 40 mg/mL and 4 cc of 1% lidocaine was injected without resistance into the medial tibial femoral joint space. The patient tolerated the procedure. Office Procedures GNS Level of Care Nursing/Assessment Patient Status: Established Patient Nursing Assessment/Reassesment: Medication Reconciliation, Update PMH in EMR and Vital Signs Coordination of Care: Complex Care and Chronic Disease 1-5, Education Complex Pt/Fam, Consent,records obtained, informed consent, Lab and Imaging orders, Results/Orders obtained and Staff clarify orders Special Needs: Language special needs Established Patient Charge Established Patient Point Assignment: 110 Established Patient Point Charge: EP Level 3 (80-115) Surgical Proc/IM SQ injection Major Surgical Procedure: Yes (LEFT KNEE INJECTION) Medication Given Medication Given Medication Given: Yes Documented Dose Given: 4 Route: Infiitration Medication Given Medication Given Medication Given: Yes Documented Dose Given: 1 Route: Infiitration Office Meds Xylocaine 10 mg/mL (1 %) injection solution Performing Provider: Margarito Lane MD Performing Location: [facility] Administered by: Margarito Lane MD on 07/27/24 10:10 Dose Route Admin Location Dispensed Lot Number Expiration Date [place] Supervisor Blasting 20 mL Infiltration 20 mL [id number] 09/28/27 02308-249-27 FRESENIUS G3 triamcinolone acetonide 40 mg/mL suspension for injection Performing Provider: Margarito Lane MD Performing Location: [facility] Administered by: Margarito Lane MD on 07/27/24 10:10 Dose Route Admin Location Dispensed Lot Number Expiration Date [facility] Supervisor Blasting 40 mg intra-articular KNEE 1 mL [id number] 03/29/26 0483-0958-94 TEVA PARENTERAL [place] Intake Visit Data Collection New Patient or Established: Established Patient (seen at [facility] within 3 years) Reason for Visit:: ER FOLLOW UP ON PAIN MEDS Seen by Clinical Staff ONLY (RN/MA): No Verbal consent obtained for Telemed visit?: No Lead Sprinkler Required: Yes PCP or OBGYN visit in last 3 months: Yes Hx Now: No Do You Feel Safe at Home: Yes Authorities Contacted: N/A Questionairres Past Medical History Past Medical History Have you ever been diagnosed with any of the following: Neurological Problems Seizures: No Cardiology Problems Hypercholesterolemia: Yes Congestive Heart Failure: No Hypertension: Yes Respiratory Problems Chronic Obstructive Pulmonary Disease (COPD): No Smoking: No Stomache/Intestinal Problems Hepatitis: No Obesity: Yes Genital/Urinary Problems Renal Disease: No Reproductive Problems Previous Pregnancies: Yes (4) Musculoskeletal Problems Arthritis: Yes Endocrine Problems Diabetes Mellitus Type 1: No Diabetes Mellitus Type 2: No Blood Problems Anemia: Yes Psychologic Problems Anxiety: Yes Other Problems Hospitalization: No Shingles: No Blood Transfusions: No Blood Transfusion Reaction: No Anesthesia Reactions: No Chicken Pox: Yes Measles: Yes Mumps: Yes Cancer: No Subjective Visit Visit for: post op #1 and knee Immunization / Flu Flu Vaccine in the Last 12 Months: No Flu Vaccine Exclusion Criteria: No Exclusion Criteria History of Present Illness Chief complaint: ER FOLLOW UP ON PAIN MEDS Patient is here for her first postop visit. She reports that she is been having some nausea and pain. She went to the ER over the weekend. The pain is starting to subside somewhat. Personal History Occupation: DISABLED Red flag PMH: BMI BMI Counceling provided: Yes Pain Pain level (0-10): 10 Pain duration: ALL DAY Pain location: anterior and posterior Pain quality: sharp, dull and aching Pain timing: increases with activity Associated signs & symptoms: numbness, weakness and stiffness Ambulatory data Ambulatory device: walker Treatments Improvement with previous injections: No Improvement with PT: No Improvement with NSAIDS: no Review of Systems Review of Systems: All systems negative unless otherwise noted in HPI.
== END 2024-07-27 10:24 | disposition home or self-care (01) ==
LOC: HODSRG 09:07
PROVIDERS: Supervising Provider Orthopaedic Surgery Adult Reconstructive Orthopaedic Surgery; Visit Provider Orthopaedic Surgery Adult Reconstructive Orthopaedic Surgery
DX: M17.0 Bilateral primary osteoarthritis of knee (principal); M25.562 Pain in left knee; M25.561 Pain in right knee; I10 Essential (primary) hypertension; E78.00 Pure hypercholesterolemia, unspecified
CPT/HCPCS: 20610; 99213; J3301; J3490; G0463

== ENCOUNTER 2024-08-17 08:03 | Outpatient (AMB) | payer MEDICAID, SELFPAY ==
[2024-08-17 08:21] VITALS: BP 139/81; PULSE 100; RESP 18; TEMP 36.6; O2SAT 95; BMI 38.0
--- NOTE | 2024-08-17 08:21 | PD.ORTHCLVIS ---
Vital signs 08/17/24 08:21 Height 1.57 m Height Method Stated Weight 93.582 kg Weight Measurement Method Standing Scale BMI 38.0 BP 139/81 H Blood Pressure Source Automatic Cuff Blood Pressure Location Right Upper Arm Position Sitting Respiration 18 Pulse 100 Pulse Source Monitor Temp 97.8 F Temp Source Temporal Artery Scan Pulse Oximetry (%) 95 Oxygen Delivery Method Room Air Med/Allergies Allergies & Medications Allergies No Known Drug Allergies Allergy (Verified 08/17/24 08:22) Medication Reconciliation atorvastatin 20 mg tablet 20 mg PO HS 07/19/24 [History Confirmed 08/17/24] ergocalciferol (vitamin D2) 1,250 mcg (50,000 unit) capsule 1,250 mcg PO QWEEK 07/19/24 [History Confirmed 08/17/24] hydrochlorothiazide 25 mg tablet 25 mg PO DAILY 07/19/24 [History Confirmed 08/17/24] hydroxyzine HCl 10 mg tablet 10 mg PO Q12H 07/19/24 [History Confirmed 08/17/24] lisinopril 5 mg tablet 5 mg PO DAILY 07/19/24 [History Confirmed 08/17/24] meloxicam 15 mg tablet 15 mg PO DAILY 07/19/24 [History Confirmed 08/17/24] acetaminophen 500 mg tablet (Acetaminophen Extra Strength) 1,000 mg (2 x 500 mg) PO Q6H PRN pain #90 tabs 07/21/24 [Rx Confirmed 08/17/24] aspirin 81 mg tablet,delayed release 81 mg PO BID #60 tabs 07/21/24 [Rx Confirmed 08/17/24] doxycycline hyclate 100 mg tablet 100 mg PO BID #14 tabs 07/21/24 [Rx Confirmed 08/17/24] gabapentin 300 mg capsule 300 mg PO .qhs #30 caps 07/21/24 [Rx Confirmed 08/17/24] oxycodone 5 mg tablet 5 mg PO Q6H PRN pain #28 tabs 07/21/24 [Rx Confirmed 08/17/24] sennosides 8.6 mg-docusate sodium 50 mg tablet (Senna-S) 1 tab-cap PO QDAY #30 tabs 07/21/24 [Rx Confirmed 08/17/24] pantoprazole 40 mg tablet,delayed release 40 mg PO QDAY #20 tabs 07/26/24 [Rx Confirmed 08/17/24] cyclobenzaprine 5 mg tablet 5 mg PO TID PRN muscle spasm #60 tabs 07/27/24 [Rx Confirmed 08/17/24] hydrocodone 5 mg-acetaminophen 325 mg tablet 1 tab PO Q6H PRN pain #28 tabs 08/17/24 [Rx] Exam Exam Patient is in no acute distress and is cooperative with the examination today. Breathing is nonlabored. In no respiratory distress. Bilateral extremities were evaluated and demonstrates sensation intact to light touch. Palpable pedal pulses are present. No significant edema is present. Bilateral hips were examined. The patient has no pain with log roll of the hips. Internal rotation to 30 degrees and external rotation to 30 degrees is painless. Negative FADIR. Left knee was examined today. The right knee is in reasonable alignment. Range of motion from 0-120 degrees. Knee is stable to varus and valgus as well as AP translation with <5mm. Patient has a negative McMurrays. There is no pain with patellofemoral compression and no crepitus noted. The knee is nontender to palpation. Right knee incision is clean dry intact. There is minimal swelling Assessment and Plan Problem List (1) Degenerative arthritis of knee, bilateral: Status: Acute Plan: Patient is a 48-year-old female with bilateral knee pain and bilateral knee arthritis. Patient is doing well status post right total knee replacement. She should continue to work with physical therapy. I discussed with her that she is at high risk for manipulation given her range of motion currently. We will see her back in 4 weeks for a motion check Office Procedures GNS Level of Care Nursing/Assessment Patient Status: Established Patient Nursing Assessment/Reassesment: Medication Reconciliation, Update PMH in EMR and Vital Signs Coordination of Care: Complex Care and Chronic Disease 1-5, Education Complex Pt/Fam, Consent,records obtained, informed consent, Lab and Imaging orders, Results/Orders obtained and Staff clarify orders Special Needs: Language special needs Established Patient Charge Established Patient Point Assignment: 110 Established Patient Point Charge: EP Level 3 (80-115) MA Intake Visit Data Collection New Patient or Established: Established Patient (seen at [facility] within 3 years) Reason for Visit:: 5 WEEK POST OP OF RIGHT KNEE Seen by Clinical Staff ONLY (RN/MA): No Verbal consent obtained for Telemed visit?: No Knitted Cloth Examiner Required: Yes PCP or OBGYN visit in last 3 months: Yes Hx Now: No Do You Feel Safe at Home: Yes Authorities Contacted: N/A Questionairres Past Medical History Past Medical History Have you ever been diagnosed with any of the following: Neurological Problems Seizures: No Cardiology Problems Hypercholesterolemia: Yes Congestive Heart Failure: No Hypertension: Yes Respiratory Problems Chronic Obstructive Pulmonary Disease (COPD): No Smoking: No Stomache/Intestinal Problems Hepatitis: No Obesity: Yes Genital/Urinary Problems Renal Disease: No Reproductive Problems Previous Pregnancies: Yes (4) Musculoskeletal Problems Arthritis: Yes Endocrine Problems Diabetes Mellitus Type 1: No Diabetes Mellitus Type 2: No Blood Problems Anemia: Yes Psychologic Problems Anxiety: Yes Other Problems Hospitalization: No Shingles: No Blood Transfusions: No Blood Transfusion Reaction: No Anesthesia Reactions: No Chicken Pox: Yes Measles: Yes Mumps: Yes Cancer: No Subjective Visit Visit for: post op #2 and knee Immunization / Flu Flu Vaccine in the Last 12 Months: Yes Flu Vaccine Exclusion Criteria: Already Received History of Present Illness Chief complaint: 5 WEEK POST OP RIGHT TKA Date of 1st surgery (if applicable): 07/19/24 Patient is here for her 6-week postop visit. She is doing well. She reports some pain but the pain is improving Personal History Occupation: DISABLED Red flag PMH: BMI BMI Counceling provided: Yes Pain Pain level (0-10): 10 Pain duration: ALL DAY Pain location: anterior and posterior Pain quality: sharp, dull and aching Pain timing: night, increases with activity and stairs Associated signs & symptoms: numbness Ambulatory data Ambulatory device: walker Treatments Improvement with previous injections: No Improvement with PT: No Improvement with NSAIDS: no Review of Systems Review of Systems: All systems negative unless otherwise noted in HPI.
== END 2024-08-17 08:33 | disposition home or self-care (01) ==
LOC: HODSRG 08:03
PROVIDERS: Supervising Provider Orthopaedic Surgery Adult Reconstructive Orthopaedic Surgery; Visit Provider Orthopaedic Surgery Adult Reconstructive Orthopaedic Surgery
DX: M17.0 Bilateral primary osteoarthritis of knee (principal); M25.562 Pain in left knee; M25.561 Pain in right knee; Z96.651 Presence of right artificial knee joint; E78.00 Pure hypercholesterolemia, unspecified; I10 Essential (primary) hypertension
CPT/HCPCS: 99213; G0463

== ENCOUNTER 2024-09-09 08:02 | Outpatient (AMB) | payer MEDICAID, SELFPAY ==
[2024-09-09 08:21] VITALS: BP 117/73; PULSE 113; RESP 18; TEMP 36.4; O2SAT 94; BMI 37.5
--- NOTE | 2024-09-09 08:21 | PD.ORTHCLVIS ---
Vital signs 09/09/24 08:21 Height 1.57 m Height Method Stated Weight 92.675 kg Weight Measurement Method Standing Scale BMI 37.5 BP 117/73 Blood Pressure Source Automatic Cuff Blood Pressure Location Right Upper Arm Position Sitting Respiration 18 Pulse 113 H Pulse Source Monitor Temp 97.5 F Temp Source Temporal Artery Scan Pulse Oximetry (%) 94 L Oxygen Delivery Method Room Air Med/Allergies Allergies & Medications Allergies No Known Drug Allergies Allergy (Verified 09/09/24 08:22) Medication Reconciliation atorvastatin 20 mg tablet 20 mg PO HS 07/19/24 [History Confirmed 09/09/24] ergocalciferol (vitamin D2) 1,250 mcg (50,000 unit) capsule 1,250 mcg PO QWEEK 07/19/24 [History Confirmed 09/09/24] hydrochlorothiazide 25 mg tablet 25 mg PO DAILY 07/19/24 [History Confirmed 09/09/24] hydroxyzine HCl 10 mg tablet 10 mg PO Q12H 07/19/24 [History Confirmed 09/09/24] lisinopril 5 mg tablet 5 mg PO DAILY 07/19/24 [History Confirmed 09/09/24] acetaminophen 500 mg tablet (Acetaminophen Extra Strength) 1,000 mg (2 x 500 mg) PO Q6H PRN pain #90 tabs 07/21/24 [Rx Confirmed 09/09/24] aspirin 81 mg tablet,delayed release 81 mg PO BID #60 tabs 07/21/24 [Rx Confirmed 09/09/24] doxycycline hyclate 100 mg tablet 100 mg PO BID #14 tabs 07/21/24 [Rx Confirmed 09/09/24] gabapentin 300 mg capsule 300 mg PO .qhs #30 caps 07/21/24 [Rx Confirmed 09/09/24] oxycodone 5 mg tablet 5 mg PO Q6H PRN pain #28 tabs 07/21/24 [Rx Confirmed 09/09/24] sennosides 8.6 mg-docusate sodium 50 mg tablet (Senna-S) 1 tab-cap PO QDAY #30 tabs 07/21/24 [Rx Confirmed 09/09/24] pantoprazole 40 mg tablet,delayed release 40 mg PO QDAY #20 tabs 07/26/24 [Rx Confirmed 09/09/24] cyclobenzaprine 5 mg tablet 5 mg PO TID PRN muscle spasm #60 tabs 08/26/24 [Rx Confirmed 09/09/24] hydrocodone 5 mg-acetaminophen 325 mg tablet 1 tab PO Q6H PRN pain #28 tabs 09/06/24 [Rx Confirmed 09/09/24] meloxicam 15 mg tablet 15 mg PO DAILY #60 tabs 09/09/24 [Rx] pregabalin 75 mg capsule 75 mg PO BID #60 caps 09/09/24 [Rx] Exam Exam Patient is in no acute distress and is cooperative with the examination today. Breathing is nonlabored. In no respiratory distress. Bilateral extremities were evaluated and demonstrates sensation intact to light touch. Palpable pedal pulses are present. No significant edema is present. Bilateral hips were examined. The patient has no pain with log roll of the hips. Internal rotation to 30 degrees and external rotation to 30 degrees is painless. Negative FADIR. Left knee was examined today. The right knee is in reasonable alignment. Range of motion from 0-120 degrees. Knee is stable to varus and valgus as well as AP translation with <5mm. Patient has a negative McMurrays. There is no pain with patellofemoral compression and no crepitus noted. The knee is nontender to palpation. Right knee incision is clean dry intact. There is minimal swelling. Range of motion 0 to 95 degrees at this point Assessment and Plan Problem List (1) Degenerative arthritis of knee, bilateral: Status: Acute Plan: Patient is a 48-year-old female with bilateral knee pain and bilateral knee arthritis. Patient is doing well status post right total knee replacement. She should continue to work with physical therapy. She can get in 95 degrees of flexion. Her sister asked for FMLA because she had to take care of the patient. We discussed that we can give her 2 weeks. We will get new x-rays today Office Procedures GNS Level of Care Nursing/Assessment Patient Status: Established Patient Nursing Assessment/Reassesment: Medication Reconciliation, Update PMH in EMR and Vital Signs Coordination of Care: Complex Care and Chronic Disease 1-5, Education Complex Pt/Fam, Consent,records obtained, informed consent, Results/Orders obtained and Staff clarify orders Special Needs: Language special needs Established Patient Charge Established Patient Point Assignment: 95 Established Patient Point Charge: EP Level 3 (80-115) MA Intake Visit Data Collection New Patient or Established: Established Patient (seen at [facility] within 3 years) Reason for Visit:: FOLLOW UP RIGHT TKA Seen by Clinical Staff ONLY (RN/MA): No Verbal consent obtained for Telemed visit?: No Presiding Judge Required: Yes PCP or OBGYN visit in last 3 months: Yes Hx Now: No Do You Feel Safe at Home: Yes Authorities Contacted: N/A Questionairres Past Medical History Past Medical History Have you ever been diagnosed with any of the following: Neurological Problems Seizures: No Cardiology Problems Hypercholesterolemia: Yes Congestive Heart Failure: No Hypertension: Yes Respiratory Problems Chronic Obstructive Pulmonary Disease (COPD): No Smoking: No Stomache/Intestinal Problems Hepatitis: No Obesity: Yes Genital/Urinary Problems Renal Disease: No Reproductive Problems Previous Pregnancies: Yes (4) Musculoskeletal Problems Arthritis: Yes Endocrine Problems Diabetes Mellitus Type 1: No Diabetes Mellitus Type 2: No Blood Problems Anemia: Yes Psychologic Problems Anxiety: Yes Other Problems Hospitalization: No Shingles: No Blood Transfusions: No Blood Transfusion Reaction: No Anesthesia Reactions: No Chicken Pox: Yes Measles: Yes Mumps: Yes Cancer: No Subjective Visit Visit for: post op #2 and knee Immunization / Flu Flu Vaccine in the Last 12 Months: No Flu Vaccine Exclusion Criteria: No Exclusion Criteria History of Present Illness Chief complaint: FOLLOW UP RIGHT TKA Date of injury / onset of symptoms: 07/19/24 Date of 1st surgery (if applicable): 07/19/24 Patient is here for her 8-week postop visit. She is doing well. She reports some pain but the pain is improving Personal History Occupation: DISABLED Red flag PMH: BMI BMI Counceling provided: Yes Pain Pain level (0-10): 7 Pain duration: ALL DAY Pain location: anterior and posterior Pain quality: burning, electric and tingling Pain timing: night, increases with activity and stairs Associated signs & symptoms: numbness, weakness and stiffness Ambulatory data Ambulatory device: walker Treatments Improvement with previous injections: No Improvement with PT: No Improvement with NSAIDS: no Review of Systems Review of Systems: All systems negative unless otherwise noted in HPI.
--- NOTE | 2024-09-09 08:27 | XR_ITS ---
Examination: Bilateral knees 2 views Right lateral knee left lateral knee 2 views Right axial knee left axial knee 2 views TECHNIQUE: Bilateral AP knees standing single view, bilateral PA knees standing single view flexion Standing right lateral knee left lateral knee 2 views Right axial knee left axial knee 2 views total 6 views Date and time: September 09, 2024 0840 hours INDICATIONS: Status post right knee replacement July 21, 2024, left knee pain 5 years FINDINGS: Mild osteopenia Total right knee arthroplasty. Satisfactory alignment. No loosening of the prosthetic components Advanced narrowing [id number] medial joint space left knee Advanced osteoarthritis left patellofemoral joint IMPRESSION: Advanced narrowing [id number] medial joint space left knee Advanced osteoarthritis left patellofemoral joint
== END 2024-09-09 08:29 | disposition home or self-care (01) ==
LOC: HODSRG 08:02
PROVIDERS: Supervising Provider Orthopaedic Surgery Adult Reconstructive Orthopaedic Surgery; Visit Provider Orthopaedic Surgery Adult Reconstructive Orthopaedic Surgery
DX: M17.0 Bilateral primary osteoarthritis of knee (principal); M25.562 Pain in left knee; M25.561 Pain in right knee; Z96.651 Presence of right artificial knee joint; I10 Essential (primary) hypertension; E78.00 Pure hypercholesterolemia, unspecified
CPT/HCPCS: 73564; 99213; G0463

== ENCOUNTER 2024-11-05 14:38 | Outpatient (AMB) | payer MEDICAID, SELFPAY ==
--- NOTE | 2024-11-05 15:26 | PD.ORTHCLVIS ---
Vital signs 11/05/24 15:27 Height 1.57 m Height Method Stated Weight 92.731 kg Weight Measurement Method Standing Scale BMI 37.6 BP 133/80 H Blood Pressure Source Automatic Cuff Blood Pressure Location Right Upper Arm Position Sitting Respiration 18 Pulse 67 Pulse Source Monitor Temp 97.6 F Temp Source Temporal Artery Scan Pulse Oximetry (%) 98 Oxygen Delivery Method Room Air Med/Allergies Allergies & Medications Allergies No Known Drug Allergies Allergy (Verified 11/05/24 15:28) Medication Reconciliation atorvastatin 20 mg tablet 20 mg PO HS 07/19/24 [History Confirmed 11/05/24] ergocalciferol (vitamin D2) 1,250 mcg (50,000 unit) capsule 1,250 mcg PO QWEEK 07/19/24 [History Confirmed 11/05/24] hydrochlorothiazide 25 mg tablet 25 mg PO DAILY 07/19/24 [History Confirmed 11/05/24] hydroxyzine HCl 10 mg tablet 10 mg PO Q12H 07/19/24 [History Confirmed 11/05/24] lisinopril 5 mg tablet 5 mg PO DAILY 07/19/24 [History Confirmed 11/05/24] acetaminophen 500 mg tablet (Acetaminophen Extra Strength) 1,000 mg (2 x 500 mg) PO Q6H PRN pain #90 tabs 07/21/24 [Rx Confirmed 11/05/24] aspirin 81 mg tablet,delayed release 81 mg PO BID #60 tabs 07/21/24 [Rx Confirmed 11/05/24] doxycycline hyclate 100 mg tablet 100 mg PO BID #14 tabs 07/21/24 [Rx Confirmed 11/05/24] gabapentin 300 mg capsule 300 mg PO .qhs #30 caps 07/21/24 [Rx Confirmed 11/05/24] oxycodone 5 mg tablet 5 mg PO Q6H PRN pain #28 tabs 07/21/24 [Rx Confirmed 11/05/24] sennosides 8.6 mg-docusate sodium 50 mg tablet (Senna-S) 1 tab-cap PO QDAY #30 tabs 07/21/24 [Rx Confirmed 11/05/24] pantoprazole 40 mg tablet,delayed release 40 mg PO QDAY #20 tabs 07/26/24 [Rx Confirmed 11/05/24] cyclobenzaprine 5 mg tablet 5 mg PO TID PRN muscle spasm #60 tabs 08/26/24 [Rx Confirmed 11/05/24] hydrocodone 5 mg-acetaminophen 325 mg tablet 1 tab PO Q6H PRN pain #28 tabs 09/06/24 [Rx Confirmed 11/05/24] meloxicam 15 mg tablet 15 mg PO DAILY #60 tabs 09/09/24 [Rx Confirmed 11/05/24] pregabalin 75 mg capsule 75 mg PO BID #60 caps 09/09/24 [Rx Confirmed 11/05/24] Exam Exam Patient is in no acute distress and is cooperative with the examination today. Breathing is nonlabored. In no respiratory distress. Bilateral extremities were evaluated and demonstrates sensation intact to light touch. Palpable pedal pulses are present. No significant edema is present. Bilateral hips were examined. The patient has no pain with log roll of the hips. Internal rotation to 30 degrees and external rotation to 30 degrees is painless. Negative FADIR. Left knee was examined today. The right knee is in reasonable alignment. Range of motion from 0-120 degrees. Knee is stable to varus and valgus as well as AP translation with <5mm. Patient has a negative McMurrays. The left knee is tender to palpation medially. Right knee incision is clean dry intact. There is minimal swelling. Range of motion 0 to 95 degrees at this point X-rays from August demonstrates a right total knee replacement that is cementless and alignment position. For the left knee there is complete obliteration of the medial joint space Assessment and Plan Problem List (1) Degenerative arthritis of knee, bilateral: Status: Acute Plan: Patient is a 48-year-old female with bilateral knee pain and bilateral knee arthritis. Patient is doing well status post right total knee replacement. She should continue to work with physical therapy. She can get in 95 degrees of flexion. the patient is doing well. She would like to get the left knee done as this is affecting her quality life and happiness. She is significant pain medially and she has tried multiple injections, anti-inflammatories, and home exercises. The nature and purpose of the total knee replacement, alternative method(s) of treatment, the material risks involved, and the possibility of complications were fully explained to the patient. The patient does NOT have any of the following contraindications to TKA: - Active infection of the knee joint, OR - Active systemic bacteremia, OR - Active skin infection or open wound at surgical site, OR - Neuropathic arthritis, OR - Severe, rapidly progressive neurological disease, OR - Severe medical condition that makes risks of surgery outweigh the potential benefit The patient was told the most common risks and complications associated with a total knee replacement include, but are not limited to: blood clots in the leg, fatal pulmonary embolism, dislocation of the prosthesis, intraoperative and postoperative fractures of the femur or tibia, infection, failure of the prosthesis or grafting materials, complications from anesthesia, reactions to blood transfusions, postoperative leg length inequality, instability of the knee replacement, nerve damage or injury, vascular injury, delayed wound healing, infection, other injury or even . In addition, there are risks associated with anesthesia given during this operation. Also, the patient was told that after undergoing a total knee replacement there may still be persistent pain or disability. The patient was informed that the success of this operation in part depends upon the mechanical devices which are going to be implanted and that these devices can fail or malfunction, and may need to be repaired or replaced and there are no guarantees as to the longevity of this device or its parts and that it or its parts could fail prematurely. The patient was also notified that during the course of surgery, there may be a need to use bone graft from donors, and that any bone graft used will be carefully screened for communicable diseases, including AIDS, hepatitis, Colton-Creutzfeldt, or other diseases, but despite the screening procedures, there is a small chance that they could contract one of these diseases. Finally, the patient was asked to follow completely and fully with all advice and recommended treatments, and that recovery and ultimate outcome are affected by their compliance with recommended treatment. We discussed the risks, benefits and treatment alternatives, and the patient is interested in proceeding with surgery. We will try to set this up as expeditiously as possible. Office Procedures GNS Level of Care Nursing/Assessment Patient Status: Established Patient Nursing Assessment/Reassesment: Medication Reconciliation, Update PMH in EMR and Vital Signs Coordination of Care: Complex Care and Chronic Disease 1-5, Education Complex Pt/Fam, Consent,records obtained, informed consent, Results/Orders obtained and Staff clarify orders Special Needs: Language special needs Established Patient Charge Established Patient Point Assignment: 95 Established Patient Point Charge: EP Level 3 (80-115) MD Intake Visit Data Collection New Patient or Established: Established Patient (seen at [facility] within 3 years) Reason for Visit:: FOLLOW UP RIGHT TKA Seen by Clinical Staff ONLY (RN/MA): No Verbal consent obtained for Telemed visit?: No Production Director Required: Yes PCP or OBGYN visit in last 3 months: Yes Hx Now: No Do You Feel Safe at Home: Yes Authorities Contacted: N/A Questionairres Past Medical History Past Medical History Have you ever been diagnosed with any of the following: Neurological Problems Seizures: No Cardiology Problems Hypercholesterolemia: Yes Congestive Heart Failure: No Hypertension: Yes Respiratory Problems Chronic Obstructive Pulmonary Disease (COPD): No Smoking: No Stomache/Intestinal Problems Hepatitis: No Obesity: Yes Genital/Urinary Problems Renal Disease: No Reproductive Problems Previous Pregnancies: Yes (4) Musculoskeletal Problems Arthritis: Yes Endocrine Problems Diabetes Mellitus Type 1: No Diabetes Mellitus Type 2: No Blood Problems Anemia: Yes Psychologic Problems Anxiety: Yes Other Problems Hospitalization: No Shingles: No Blood Transfusions: No Blood Transfusion Reaction: No Anesthesia Reactions: No Chicken Pox: Yes Measles: Yes Mumps: Yes Cancer: No Subjective Visit Visit for: post op #2 and knee Immunization / Flu Flu Vaccine in the Last 12 Months: No Flu Vaccine Exclusion Criteria: No Exclusion Criteria History of Present Illness Chief complaint: FOLLOW UP RIGHT TKA Date of injury / onset of symptoms: 07/19/24 Date of 1st surgery (if applicable): 07/19/24 Patient is here for her 4 months postop visit. She is doing well. She reports some pain but the pain is improving Personal History Occupation: DISABLED Red flag PMH: BMI BMI Counceling provided: Yes Pain Pain level (0-10): 7 Pain duration: ALL DAY Pain location: anterior and posterior Pain quality: burning, electric and tingling Pain timing: night, increases with activity and stairs Associated signs & symptoms: numbness, weakness and stiffness Ambulatory data Ambulatory device: walker Treatments Improvement with previous injections: No Improvement with PT: No Improvement with NSAIDS: no Review of Systems Review of Systems: All systems negative unless otherwise noted in HPI.
[2024-11-05 15:27] VITALS: BP 133/80; PULSE 67; RESP 18; TEMP 36.4; O2SAT 98; BMI 37.6
== END 2024-11-05 15:35 | disposition home or self-care (01) ==
LOC: HODSRG 14:38
PROVIDERS: Supervising Provider Orthopaedic Surgery Adult Reconstructive Orthopaedic Surgery; Visit Provider Orthopaedic Surgery Adult Reconstructive Orthopaedic Surgery
DX: M17.0 Bilateral primary osteoarthritis of knee (principal); M25.562 Pain in left knee; M25.561 Pain in right knee; Z96.651 Presence of right artificial knee joint; I10 Essential (primary) hypertension; E78.00 Pure hypercholesterolemia, unspecified; E66.9 Obesity, unspecified; Z71.3 Dietary counseling and surveillance; Z68.37 Body mass index [BMI] 37.0-37.9, adult
CPT/HCPCS: 99213; G0463

== ENCOUNTER → 2024-11-15 | Outpatient (CLI) | payer MEDICAID, SELFPAY ==
--- NOTE | 2024-11-15 12:00 | XR_ITS ---
Examination: CT left lower extremity without intravenous contrast, without contrast. 2-D sagittal reconstructions. 2-D coronal reconstructions. 3-D reconstructions. Date and time of exam:November 15, 2024 1151 hours INDICATIONS: Diagnosis primary unilateral osteoarthritis left knee, left knee pain 5 years CTDI: vol (mGy):13.1 DLP: (mGycm):835 Technique: Multiple 1.25 mm axial sections of the left lower extremity without intravenous contrast have been obtained. 2-D sagittal and coronal reconstructions have been obtained. 3-D reconstructions have been obtained. Low dose protocols were performed. One or more of the following dose reduction techniques were used; automated exposure control, adjustment of the mA and/or KV according to patient size, use of iterative reconstruction technique. Findings: Moderate osteopenia Mild osteoarthritis left hip joint no fracture Severe left knee tricompartment osteoarthritis, advanced narrowing medial joint space No fracture IMPRESSION: Severe left knee tricompartment osteoarthritis
== END | disposition home or self-care (01) ==
LOC: CCTX 11:43
PROVIDERS: Referring Provider Orthopaedic Surgery Adult Reconstructive Orthopaedic Surgery; Visit Provider Orthopaedic Surgery Adult Reconstructive Orthopaedic Surgery
DX: M17.12 Unilateral primary osteoarthritis, left knee (principal)
CPT/HCPCS: 73700

== ENCOUNTER 2024-11-24 08:40 | Day surgery (SDC) | payer MEDICAID, SELFPAY ==
--- NOTE | 2024-11-19 06:45 | EKG_ITS ---
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
[2024-11-19 10:01] VITALS: BMI 38.5
[2024-11-19 10:43] LABS: Basophils # (Auto) 0.0 Thou/mm3 (0.0-0.2); Basophils % (Auto) 0 % (0-2.5); Eosinophils # (Auto) 0.1 Thou/mm3 (0.0-0.5); Eosinophils % (Auto) 1 % (0-10); Hematocrit 38.7 % (36.0-46.0); Hemoglobin 12.6 g/dL (12.0-16.0); Immature Granulocytes Auto 0.04 Thou/mm3 (0.00-0.00); Lymphocytes # (Auto) 2.8 Thou/mm3 (1.0-4.8); Lymphocytes % (Auto) 23 % (10-50); Mean Corpuscular HGB Conc 32.6 g/dl (31.0-37.0); Mean Corpuscular Hemoglobin 28.7 pg (25.0-35.0); Mean Corpuscular Volume 88 fL (80-100); Monocytes # (Auto) 1.0 Thou/mm3 (0.0-0.8); Monocytes % (Auto) 8 % (0-12); Neutrophils # (Auto) 8.4 Thou/mm3 (1.8-7.7); Neutrophils % (Auto) 69 % (37-80); Nucleated Red Blood Cell # 0.00 Thou/mm3 (0.00-0.00); Nucleated Red Blood Cell % 0 /100 WBC (0); Platelet Count 412 Thou/mm3 (140-440); RDW Standard Deviation 43.6 fL (36.4-46.3); Red Blood Count 4.39 Miln/mm3 (4.00-5.20); White Blood Count 12.3 Thou/mm3 (3.6-11.0)
[2024-11-19 11:01] LABS: INR 0.9 (0.9-1.3); Partial Thromboplastin Time 26.8 Seconds (22.0-36.0); Prothrombin Time 10.4 Seconds (9.0-12.2)
[2024-11-19 11:09] LABS: Alanine Aminotransferase 13 U/L (10-49); Albumin, Serum 4.4 gm/dL (3.5-5.0); Albumin/Globulin Ratio 1.6 (1.2-2.2); Alkaline Phosphatase 99 U/L (46-116); Anion Gap 10 (7-16); Aspartate Amino Transferase 14 U/L (0-34); BUN/Creatinine Ratio 13 Ratio (12-20); Bilirubin,Total 0.5 mg/dL (0.3-1.2); Blood Urea Nitrogen 12 mg/dL (9-23); Calcium 10.1 mg/dL (8.3-10.6); Calcium (Corrected) 10.1 mg/dL (8.5-10.1); Carbon Dioxide 28.4 mMol/L (20.0-31.0); Chloride 101 mMol/L (98-107); Creatinine (Component) 0.9 mg/dL (0.6-1.3); Estimated Creatinine Clearance 77.5 mL/min (>60); Globulin 2.8 gm/dL (2.3-3.5); Glucose 98 mg/dL (74-106); Osmolality,Calculated 277 (275-295); Potassium 4.5 mMol/L (3.4-5.1); Sodium 139 mMol/L (136-145); Total Protein 7.2 gm/dL (5.7-8.2); eGFR > 60 See Note
--- NOTE | 2024-11-23 13:49 | SUR.PREOP ---
WBC 12.3, Dr Lane notified and ok to proceed with surgery.
[2024-11-24] VITALS (17 sets, daily range): BP systolic 106–158; BP diastolic 67–101; PULSE 72–108; RESP 15–20; TEMP 36.3–37.1; O2SAT 95–100; BMI 38.9; BMI 15.0
[2024-11-24] MEDS: MELOXICAM 7.5 MG TABLET PO (09:47)
[2024-11-24] MEDS: RINGERS LACTATED 1000 ML 1,000 ML 20 ML IV (09:47)
[2024-11-24] MEDS: ACETAMINOPHEN 325 MG TABLET 650 MG PO (09:48)
[2024-11-24] MEDS: PREGABALIN 75 MG CAPSULE PO (09:48)
--- NOTE | 2024-11-24 13:48 | XR_ITS ---
Examination: Left knee 2 views Technique one AP lateral left knee 2 views Date and time: November 24, 2024, 1536 hours INDICATIONS: Postop knee replacement today. FINDINGS: Total left knee arthroplasty. Satisfactory alignment. No fracture. IMPRESSION: Total left knee arthroplasty with satisfactory alignment.
--- NOTE | 2024-11-24 13:53 | PD.SUROPNT ---
Date of Procedure 11/24/24 Pre Op Diagnosis left knee osteoarthritis Post Op Diagnosis left knee osteoarthritis Procedure left total knee replacement james Findings full thickness cartilage loss and osteophytes Procedure Description Indication: The patient is a 49 year old who has a long history of left knee pain. X-rays show degenerative arthritis involving the knee. Over the past several years the patient has had increasing pain, progressive limitation in function. He has failed conservative measures including activity modification, physical therapy, injections, anti-inflammatories, and assistive devices. After a lengthy discussion of the risks and benefits, the patient presents now for total knee replacement. The nature and purpose of the total knee replacement, alternative method(s) of treatment, the material risks involved, and the possibility of complications were fully explained to the patient. The patient was told the most common risks and complications associated with a total knee replacement include, but are not limited to blood clots in the leg, fatal pulmonary embolism, dislocation of the prosthesis, intraoperative and postoperative fractures of the femur or tibia, infection, failure of the prosthesis or grafting materials, complications from anesthesia, reactions to blood transfusions, postoperative leg length inequality, instability of the knee replacement, nerve damage or injury, vascular injury, delayed wound healing, infections, other injury or even . In addition, there are risks associated with anesthesia given during this operation, temporary or permanent numbness on the skin lateral to the incision can be a complication unique to total knee surgery, and kneeling can be painful after knee replacement surgery. Also, the patient was told that after undergoing a total knee replacement there may still be pain or disability. We discussed with the patient that we will be using a robot-assisted technology. We discussed that there is a possibility of converting to manual instrumentation. The patient was informed that the success of this operation in part depends upon the mechanical devices which are going to be implanted and that these devices can fail or malfunction, and may need to be repaired or replaced and there are no guarantees as to the longevity of this device or its part and that it or its parts could fail prematurely. Finally, the patient was asked to follow completely and fully with all advice and recommended treatments, and that recovery and ultimate outcome are affected by their compliance with recommended treatment. Surgical technique: Patient was marked and consented in the pre-operative area. The patient was brought to the operating room and placed on the operating table in a supine position. Prior to positioning, a timeout procedure was performed between the surgeon, the anesthesiologist, and the nursing staff where the patient and the operative side were identified and confirmed. After adequate general anesthetic was obtained, the left lower extremity was prepped and draped in the usual sterile fashion. A weight based dose of Cefazolin were administered within 1 hour prior to incision. The robot was preregistered and calirated before the incision. The extremity was exsanguinated with an esmarch badge and tourniquet inflated to 250mmHg. A midline incision was made. A median parapatellar arthrotomy was made. The patella was subluxed laterally. A medial release was performed to expose the medial tibia. His femoral and tibial pins were placed through an intra incisional manner for both cases. Every effort was made to ensure that the distalmost aspect of the pin was hung in the second cortex. The arrays were then tightened several times to ensure that it was fixed for the remainder of the case. Both femoral and tibial checkpoints were then placed. We then went through the registration process of the bone. We then assessed the knee deformity and attempted to correct it. We also used the robot to aid in judging laxity in both extension and flexion. Final based on laxity and alignment we changed the preoperative assessment to obtain proper proper implant positioning and to correct deformity. Attention was then placed to the tibia. We made a tibial cut using the robot ensuring that both the MCL and the patella tendon were protected with retractors. We then went to the femur and made the posterior cut followed by the anterior cut and the anterior chamfer. The bone was then removed and we made a distal femur cut and a posterior chamfer cut. We verified all cuts. A trial reduction was performed with a size [3] femoral component and a size [2] keeled tibial component. The patella tracked centrally, and no lateral retinacular release was necessary. The trial implants were removed. The arrays, pins, and checkpoints were all removed. We performed a verification that all pins were removed. The cut bone surfaces were lavaged. A size [3] left femoral component, a size [2] keeled tibial component, were impacted into position. The knee was felt to be well balanced in the sagittal and coronal plane. The final [2x12] mm cruciate-substituting articular insert was impacted into the tibial tray. The knee was brought out to full extension, flexed up to 120 degrees. It was stable to varus and valgus stress and appropriately balanced in flexion and extension. The wounds were copiously irrigated following deflation of tourniquet. The medial retinaculum was reapproximated with #1 vicryl and quill. The subcutaneous tissues were closed with 0 and 2-0 interrupted Vicryl. The skin was closed with 3-0 Monofilament V loc suture. A sterile dressing was applied. The patient was transferred to a bed and brought to recovery in stable condition. The patient tolerated the procedure well. There were no intraoperative complications. Sponge and needle counts were correct times 2. As the attending surgeon, I attest I was present and performed the entire operation. Grafts/Implants Size [3] CR Femur Size [2] Tibia 10mm poly CS Anesthesia spinal Implants lillian Pathology / specimen None Pathology comment: none Estimated Blood Loss 150 Condition Stable Disposition same day Surgeon Margarito Lane MD Surgical Staff Operation Date: 11/24/24 14:00 Case Staff Anesthesiologist: Zuhair Awad RN First Assistant: Barbara Clalaway
--- NOTE | 2024-11-24 14:23 | SUR.PHASEI ---
1423 Patient arrived to recovery resting comfortably in [facility], on oxygen 7L via oxy mask, breathing unlabored, vital signs stable, dressing intact to left knee; prineo, telfa, abd, webril, grover wraps, no bleeding noted, bilateral dorsalis pedis pulses present when palpated, patient has good circulation to left lower extremity, skin color normal for patient and warm to touch, report received from Dr. Martines and Brittney ACOSTA
[2024-11-24] MEDS: HYDROmorphone INJ 2 MG/ML VIAL 0.4 MG IVP ×2 (15:49→16:09)
[2024-11-24] MEDS: ACETAMINOPHEN IVPB 1,000 MG/100 ML VIAL 250 MG IV (15:52)
[2024-11-24] MEDS: ONDANSETRON INJ 2 MG/ML INJ 2 ML 4 MG IVP (17:12)
--- NOTE | 2024-11-24 17:30 | SUR.PHASEII ---
1710 patient working with physical therapist had an episode of emesis, per patient she stated she felt better after throwing up 1712 administer Zofran 4mg via IVP to patient per anesthesia order 1730 medication effective, patient denies nausea
--- NOTE | 2024-11-24 17:45 | SUR.PHASEII ---
1744 while patient getting dressed had a episode of emesis, patient shared she felt better after getting the fluid off her stomach, denies nausea after emesis episode
--- NOTE | 2024-11-24 17:57 | SUR.PHASEII ---
1757 patient meets discharge criteria from recovery, awake and alert, breathing unlabored, vital signs stable, per patient her pain is tolerable, dressing intact; no bleeding noted, patient eating ice chip; tolerating well, assisted with dressing into her clothing by her daughter, patient signed limited proficiency statement for her daughter to translator/interpreter Tajik to her, discharge instructions given to patient and patients daughter, daughter signed discharge instructions. Patient given all her belongings prior to discharge, transported via wheelchair and left in a private vehicle.
== END 2024-11-24 17:57 | disposition home or self-care (01) ==
PROVIDERS: Anesthesiology; PCP Family Medicine; Referring Provider Orthopaedic Surgery Adult Reconstructive Orthopaedic Surgery; Visit Provider Orthopaedic Surgery Adult Reconstructive Orthopaedic Surgery
PROC: (CPT 27447; principal; 2024-11-24 13:45)
DX: M17.12 Unilateral primary osteoarthritis, left knee (principal); Z01.810 Encounter for preprocedural cardiovascular examination; M25.762 Osteophyte, left knee
CPT/HCPCS: 27447; 20985; 36415; 73560; 80053; 85025; 85610; 85730; 93005; 97163; A4217; A4649; C1713; C1776; J0131; J0690; J1100; J1171; J1885; J2250; J2405; J2704; J2795; J3010; J3490; J7120; J7999; A4648; A9270

== ENCOUNTER 2024-12-09 10:18 | Outpatient (AMB) | payer MEDICAID, SELFPAY ==
[2024-12-09 10:39] VITALS: BP 128/83; PULSE 94; RESP 18; TEMP 36.9; O2SAT 96; BMI 37.5
--- NOTE | 2024-12-09 10:39 | PD.ORTHCLVIS ---
Vital signs 12/09/24 10:39 Height 1.55 m Height Method Stated Weight 90.038 kg Weight Measurement Method Standing Scale BMI 37.5 BP 128/83 Blood Pressure Source Automatic Cuff Blood Pressure Location Left Upper Arm Position Sitting Respiration 18 Pulse 94 Pulse Source Monitor Temp 98.4 F Temp Source Temporal Artery Scan Pulse Oximetry (%) 96 Oxygen Delivery Method Room Air Med/Allergies Allergies & Medications Allergies No Known Drug Allergies Allergy (Verified 11/24/24 09:50) Medication Reconciliation atorvastatin 20 mg tablet 20 mg PO HS 07/19/24 [History Confirmed 12/09/24] ergocalciferol (vitamin D2) 1,250 mcg (50,000 unit) capsule 1,250 mcg PO QWEEK 07/19/24 [History Confirmed 12/09/24] hydrochlorothiazide 25 mg tablet 25 mg PO DAILY 07/19/24 [History Confirmed 12/09/24] hydroxyzine HCl 10 mg tablet 10 mg PO Q12H 07/19/24 [History Confirmed 12/09/24] lisinopril 5 mg tablet 5 mg PO DAILY 07/19/24 [History Confirmed 12/09/24] ferrous sulfate 325 mg (65 mg iron) tablet (FeroSul) 325 mg PO DAILY 11/19/24 [History Confirmed 12/09/24] aspirin 81 mg tablet,delayed release 81 mg PO BID #60 tabs 11/24/24 [Rx Confirmed 12/09/24] doxycycline hyclate 100 mg tablet 100 mg PO BID #14 tabs 11/24/24 [Rx Confirmed 12/09/24] gabapentin 300 mg capsule 300 mg PO .qhs #30 caps 11/24/24 [Rx Confirmed 12/09/24] oxycodone 5 mg tablet 5 mg PO Q6H PRN pain #28 tabs 11/24/24 [Rx Confirmed 12/09/24] sennosides 8.6 mg-docusate sodium 50 mg tablet (Senna-S) 1 tab-cap PO QDAY #30 tabs 11/24/24 [Rx Confirmed 12/09/24] acetaminophen 500 mg tablet (Acetaminophen Extra Strength) 1,000 mg (2 x 500 mg) PO Q6H PRN pain #90 tabs 12/09/24 [Rx] cyclobenzaprine 7.5 mg tablet 7.5 mg PO QHS PRN muscle spasm #30 tabs 12/09/24 [Rx] oxycodone 5 mg tablet 5 mg PO Q6H PRN pain #28 tabs 12/09/24 [Rx Confirmed 12/09/24] Exam Exam Patient is in no acute distress and is cooperative with the examination today. Breathing is nonlabored. In no respiratory distress. Bilateral extremities were evaluated and demonstrates sensation intact to light touch. Palpable pedal pulses are present. No significant edema is present. Bilateral hips were examined. The patient has no pain with log roll of the hips. Internal rotation to 30 degrees and external rotation to 30 degrees is painless. Negative FADIR. Left knee incisions clean dry intact Assessment and Plan Problem List (1) Degenerative arthritis of knee, bilateral: Status: Acute Plan: Patient is doing well status post left total knee replacement recent refills on medication. Will see her in 4 weeks for routine follow-up. 6. Office Procedures GNS Level of Care Nursing/Assessment Patient Status: Established Patient Nursing Assessment/Reassesment: Medication Reconciliation, Update PMH in EMR and Vital Signs Coordination of Care: Complex Care and Chronic Disease 1-5, Education Complex Pt/Fam, Consent,records obtained, informed consent, Results/Orders obtained and Staff clarify orders Special Needs: Language special needs Established Patient Charge Established Patient Point Assignment: 95 Established Patient Point Charge: EP Level 3 (80-115) MA Intake Visit Data Collection New Patient or Established: Established Patient (seen at [facility] within 3 years) Seen by Clinical Staff ONLY (RN/MA): No Verbal consent obtained for Telemed visit?: No Secondary Set Up Man Required: Yes PCP or OBGYN visit in last 3 months: Yes Hx Now: No Do You Feel Safe at Home: Yes Authorities Contacted: N/A Questionairres Past Medical History Past Medical History Have you ever been diagnosed with any of the following: Neurological Problems Seizures: No Cardiology Problems Hypercholesterolemia: Yes Congestive Heart Failure: No Hypertension: Yes Respiratory Problems Chronic Obstructive Pulmonary Disease (COPD): No Smoking: No Stomache/Intestinal Problems Hepatitis: No Obesity: Yes Genital/Urinary Problems Renal Disease: No Reproductive Problems Previous Pregnancies: Yes (4) Musculoskeletal Problems Arthritis: Yes Endocrine Problems Diabetes Mellitus Type 1: No Diabetes Mellitus Type 2: No Blood Problems Anemia: Yes Psychologic Problems Anxiety: Yes Other Problems Hospitalization: No Shingles: No Blood Transfusions: No Blood Transfusion Reaction: No Anesthesia Reactions: No Chicken Pox: Yes Measles: Yes Mumps: Yes Cancer: No Subjective Visit Visit for: follow up visit, post op #1 (LEFT) and knee Immunization / Flu Flu Vaccine in the Last 12 Months: No Flu Vaccine Exclusion Criteria: No Exclusion Criteria History of Present Illness Chief complaint: FOLLOW UP LEFT TKA Date of injury / onset of symptoms: 07/19/24 Date of 1st surgery (if applicable): 07/19/24 Patient is here for her 2 weeks postop visit. She is doing well. She reports some pain but the pain is improving Personal History Occupation: DISABLED Red flag PMH: BMI BMI Counceling provided: Yes Pain Pain level (0-10): 7 Pain duration: ALL DAY Pain location: anterior and posterior Pain quality: burning, electric and tingling Pain timing: night, increases with activity and stairs Associated signs & symptoms: numbness, weakness and stiffness Ambulatory data Ambulatory device: walker Treatments Improvement with previous injections: No Improvement with PT: No Improvement with NSAIDS: no Review of Systems Review of Systems: All systems negative unless otherwise noted in HPI.
== END 2024-12-09 10:47 | disposition home or self-care (01) ==
LOC: HODSRG 10:18
PROVIDERS: Supervising Provider Orthopaedic Surgery Adult Reconstructive Orthopaedic Surgery; Visit Provider Orthopaedic Surgery Adult Reconstructive Orthopaedic Surgery
DX: M17.0 Bilateral primary osteoarthritis of knee (principal); Z96.652 Presence of left artificial knee joint; I10 Essential (primary) hypertension; E78.00 Pure hypercholesterolemia, unspecified; E66.9 Obesity, unspecified; Z68.37 Body mass index [BMI] 37.0-37.9, adult
CPT/HCPCS: 99213; G0463

== ENCOUNTER 2025-01-21 09:08 | Outpatient (AMB) | payer MEDICAID, SELFPAY ==
--- NOTE | 2025-01-21 09:18 | ORTHONT_ITS ---
Vital signs 01/21/25 09:30 Height 1.55 m Height Method Measured Weight 92.618 kg Weight Measurement Method Standing Scale BMI 38.5 BP 157/94 H Blood Pressure Source Automatic Cuff Blood Pressure Location Left Upper Arm Position Sitting Respiration 18 Pulse 71 Pulse Source Monitor Temp 97.9 F Temp Source Temporal Artery Scan Pulse Oximetry (%) 98 Oxygen Delivery Method Room Air Med/Allergies Allergies & Medications Allergies No Known Drug Allergies Allergy (Verified 01/21/25 09:31) Medication Reconciliation atorvastatin 20 mg tablet 20 mg PO HS 07/19/24 [History Confirmed 01/21/25] ergocalciferol (vitamin D2) 1,250 mcg (50,000 unit) capsule 1,250 mcg PO QWEEK 07/19/24 [History Confirmed 01/21/25] hydrochlorothiazide 25 mg tablet 25 mg PO DAILY 07/19/24 [History Confirmed 01/21/25] hydroxyzine HCl 10 mg tablet 10 mg PO Q12H 07/19/24 [History Confirmed 01/21/25] lisinopril 5 mg tablet 5 mg PO DAILY 07/19/24 [History Confirmed 01/21/25] ferrous sulfate 325 mg (65 mg iron) tablet (FeroSul) 325 mg PO DAILY 11/19/24 [History Confirmed 01/21/25] aspirin 81 mg tablet,delayed release 81 mg PO BID #60 tabs 11/24/24 [Rx Confirmed 01/21/25] doxycycline hyclate 100 mg tablet 100 mg PO BID #14 tabs 11/24/24 [Rx Confirmed 01/21/25] gabapentin 300 mg capsule 300 mg PO .qhs #30 caps 11/24/24 [Rx Confirmed 01/21/25] oxycodone 5 mg tablet 5 mg PO Q6H PRN pain #28 tabs 11/24/24 [Rx Confirmed 01/21/25] sennosides 8.6 mg-docusate sodium 50 mg tablet (Senna-S) 1 tab-cap PO QDAY #30 tabs 11/24/24 [Rx Confirmed 01/21/25] acetaminophen 500 mg tablet (Acetaminophen Extra Strength) 1,000 mg (2 x 500 mg) PO Q6H PRN pain #90 tabs 12/09/24 [Rx Confirmed 01/21/25] oxycodone 5 mg tablet 5 mg PO Q6H PRN pain #28 tabs 12/18/24 [Rx Confirmed 01/21/25] gabapentin 300 mg capsule 300 mg PO .qhs #30 caps 01/08/25 [Rx Confirmed 01/21/25] cyclobenzaprine 7.5 mg tablet 7.5 mg PO QHS PRN muscle spasm #30 tabs 01/21/25 [Rx Confirmed 01/21/25] oxycodone 5 mg tablet 5 mg PO Q6H PRN pain #28 tabs 01/21/25 [Rx Confirmed 01/21/25] Exam Exam Patient is in no acute distress and is cooperative with the examination today. Breathing is nonlabored. In no respiratory distress. Bilateral extremities were evaluated and demonstrates sensation intact to light touch. Palpable pedal pulses are present. No significant edema is present. Bilateral hips were examined. The patient has no pain with log roll of the hips. Internal rotation to 30 degrees and external rotation to 30 degrees is painless. Negative FADIR. Left knee incisions clean dry intact. Range of motion 0 to 85 degrees Assessment and Plan Problem List (1) Degenerative arthritis of knee, bilateral: Status: Acute Plan: Patient is doing well status post left total knee replacement . We Will see her in 3 weeks for routine follow-up. Her range of motion is not great and she only has 85 degrees of flexion. Extension is fine. We thus discussed manipulation under anesthesia. We also discussed that we could try 3 more weeks of physical therapy to see if her range of motion improves. I would like to see her in 3 weeks for a motion check. She will need a manipulation under anesthesia if she dies not improve Office Procedures GNS Level of Care Nursing/Assessment Patient Status: Established Patient Nursing Assessment/Reassesment: Medication Reconciliation, Update PMH in EMR and Vital Signs Coordination of Care: Complex Care and Chronic Disease 1-5, Education Complex Pt/Fam, Consent,records obtained, informed consent, Lab and Imaging orders, Results/Orders obtained and Staff clarify orders Special Needs: Language special needs Established Patient Charge Established Patient Point Assignment: 110 Established Patient Point Charge: EP Level 3 (80-115) MA Intake Visit Data Collection New Patient or Established: Established Patient (seen at [facility] within 3 years) Reason for Visit:: LEFT TKA 2 MONTH F/U Seen by Clinical Staff ONLY (RN/MA): No Partner Marketing Intern Required: Yes PCP or OBGYN visit in last 3 months: Yes Hx Now: No Do You Feel Safe at Home: Yes Authorities Contacted: N/A Questionairres Past Medical History Past Medical History Have you ever been diagnosed with any of the following: Neurological Problems Seizures: No Cardiology Problems Hypercholesterolemia: Yes Congestive Heart Failure: No Hypertension: Yes Respiratory Problems Chronic Obstructive Pulmonary Disease (COPD): No Smoking: No Stomache/Intestinal Problems Hepatitis: No Obesity: Yes Genital/Urinary Problems Renal Disease: No Reproductive Problems Previous Pregnancies: Yes (4) Musculoskeletal Problems Arthritis: Yes Endocrine Problems Diabetes Mellitus Type 1: No Diabetes Mellitus Type 2: No Blood Problems Anemia: Yes Psychologic Problems Anxiety: Yes Other Problems Hospitalization: No Shingles: No Blood Transfusions: No Blood Transfusion Reaction: No Anesthesia Reactions: No Chicken Pox: Yes Measles: Yes Mumps: Yes Cancer: No Subjective Visit Visit for: follow up visit, post op #1 (LEFT) and knee Immunization / Flu Flu Vaccine in the Last 12 Months: Yes Flu Vaccine Exclusion Criteria: No Exclusion Criteria and Already Received History of Present Illness Chief complaint: LEFT TKA 2 MONTH F/U Date of injury / onset of symptoms: 07/19/24 Date of 1st surgery (if applicable): 07/19/24 Patient is here for her 7 weeks postop visit. She is doing well. She reports some pain but the pain is improving. She is starting to work more aggressively with physical therapy. Her range of motion is not great Personal History Occupation: DISABLED Red flag PMH: BMI and none BMI Counceling provided: Yes Pain Pain level (0-10): 9 Pain duration: ALL DAY Pain location: anterior and posterior Pain quality: burning, electric and tingling Pain timing: night, increases with activity and stairs Associated signs & symptoms: numbness, weakness and stiffness Ambulatory data Ambulatory device: walker and none Treatments Improvement with previous injections: No Improvement with PT: No Improvement with NSAIDS: no Review of Systems Review of Systems: All systems negative unless otherwise noted in HPI.
[2025-01-21 09:30] VITALS: BP 157/94; PULSE 71; RESP 18; TEMP 36.6; O2SAT 98; BMI 38.5
--- NOTE | 2025-01-21 09:31 | XR_ITS ---
EXAMINATION: Bilateral knees 2 views Right lateral knee left lateral knee 2 views Bilateral axial knee single view TECHNIQUE: Bilateral AP knees standing single view Bilateral PNA standing single view flexion Standing right lateral knee left lateral knee 2 views Bilateral axial knee single view total 5 views Date and time: January 21, 2025, 0939 hours INDICATIONS: History of bilateral knee replacement, left side June 2024 right-sided October 2024 FINDINGS: Moderate osteopenia. Bilateral total knee arthroplasties with satisfactory alignment. No fractures. No loosening of the prosthetic components Small bilateral knee effusions IMPRESSION: Bilateral total knee arthroplasties with satisfactory alignment
== END 2025-01-21 09:32 | disposition home or self-care (01) ==
LOC: HODSRG 09:08
PROVIDERS: Supervising Provider Orthopaedic Surgery Adult Reconstructive Orthopaedic Surgery; Visit Provider Orthopaedic Surgery Adult Reconstructive Orthopaedic Surgery
DX: Z47.1 Aftercare following joint replacement surgery (principal); Z96.652 Presence of left artificial knee joint; I10 Essential (primary) hypertension; E66.9 Obesity, unspecified; Z68.38 Body mass index [BMI] 38.0-38.9, adult
CPT/HCPCS: 73564; 99213; G0463

== ENCOUNTER 2025-02-09 14:29 | Outpatient (AMB) | payer MEDICAID, SELFPAY ==
[2025-02-09 14:51] VITALS: BP 148/83; PULSE 76; RESP 20; TEMP 36.8; O2SAT 99; BMI 38.3
--- NOTE | 2025-02-09 14:51 | ORTHONT_ITS ---
Vital signs 02/09/25 14:51 Height 1.55 m Height Method Stated Weight 92.079 kg Weight Measurement Method Standing Scale BMI 38.3 BP 148/83 H Blood Pressure Source Automatic Cuff Blood Pressure Location Left Upper Arm Position Sitting Respiration 20 Pulse 76 Pulse Source Monitor Temp 98.2 F Temp Source Temporal Artery Scan Pulse Oximetry (%) 99 Oxygen Delivery Method Room Air Med/Allergies Allergies & Medications Allergies No Known Drug Allergies Allergy (Verified 02/09/25 14:52) Medication Reconciliation atorvastatin 20 mg tablet 20 mg PO HS 07/19/24 [History Confirmed 02/09/25] ergocalciferol (vitamin D2) 1,250 mcg (50,000 unit) capsule 1,250 mcg PO QWEEK 07/19/24 [History Confirmed 02/09/25] hydrochlorothiazide 25 mg tablet 25 mg PO DAILY 07/19/24 [History Confirmed 02/09/25] hydroxyzine HCl 10 mg tablet 10 mg PO Q12H 07/19/24 [History Confirmed 02/09/25] lisinopril 5 mg tablet 5 mg PO DAILY 07/19/24 [History Confirmed 02/09/25] ferrous sulfate 325 mg (65 mg iron) tablet (FeroSul) 325 mg PO DAILY 11/19/24 [History Confirmed 02/09/25] aspirin 81 mg tablet,delayed release 81 mg PO BID #60 tabs 11/24/24 [Rx Confirmed 02/09/25] doxycycline hyclate 100 mg tablet 100 mg PO BID #14 tabs 11/24/24 [Rx Confirmed 02/09/25] gabapentin 300 mg capsule 300 mg PO .qhs #30 caps 11/24/24 [Rx Confirmed 02/09/25] oxycodone 5 mg tablet 5 mg PO Q6H PRN pain #28 tabs 11/24/24 [Rx Confirmed 02/09/25] sennosides 8.6 mg-docusate sodium 50 mg tablet (Senna-S) 1 tab-cap PO QDAY #30 tabs 11/24/24 [Rx Confirmed 02/09/25] acetaminophen 500 mg tablet (Acetaminophen Extra Strength) 1,000 mg (2 x 500 mg) PO Q6H PRN pain #90 tabs 12/09/24 [Rx Confirmed 02/09/25] oxycodone 5 mg tablet 5 mg PO Q6H PRN pain #28 tabs 12/18/24 [Rx Confirmed 02/09/25] gabapentin 300 mg capsule 300 mg PO .qhs #30 caps 01/08/25 [Rx Confirmed 02/09/25] cyclobenzaprine 7.5 mg tablet 7.5 mg PO QHS PRN muscle spasm #30 tabs 01/21/25 [Rx Confirmed 02/09/25] oxycodone 5 mg tablet 5 mg PO Q6H PRN pain #28 tabs 01/21/25 [Rx Confirmed 02/09/25] cyclobenzaprine 5 mg tablet 5 mg PO QHS PRN muscle spasm #30 tabs 02/09/25 [Rx] Exam Exam Patient is in no acute distress and is cooperative with the examination today. Breathing is nonlabored. In no respiratory distress. Bilateral extremities were evaluated and demonstrates sensation intact to light touch. Palpable pedal pulses are present. No significant edema is present. Bilateral hips were examined. The patient has no pain with log roll of the hips. Internal rotation to 30 degrees and external rotation to 30 degrees is painless. Negative FADIR. Left knee incisions clean dry intact. Range of motion 0 to 85 degrees Assessment and Plan Problem List (1) Degenerative arthritis of knee, bilateral: Status: Acute Plan: Patient is doing well status post left total knee replacement . We Will see her in 3 weeks for routine follow-up. Her range of motion is not great and she only has 85 degrees of flexion. Extension is fine. We thus discussed manipulation under anesthesia. She has a physical therapy discharge note. Her range of motion is only at 85 degrees. I discussed with her I would like to get more motion and would like to get at least close to the right knee. We recommend aggressive physical therapy for 2-3 more weeks and a manipulation should she not get the motion back. We will see her back in 2 weeks for follow- up and a motion check Office Procedures GNS Level of Care Nursing/Assessment Patient Status: Established Patient Nursing Assessment/Reassesment: Medication Reconciliation, Update PMH in EMR and Vital Signs Coordination of Care: Complex Care and Chronic Disease 1-5, Education Complex Pt/Fam, Consent,records obtained, informed consent, Results/Orders obtained and Staff clarify orders Established Patient Charge Established Patient Point Assignment: 95 Established Patient Point Charge: EP Level 3 (80-115) [place] Intake Visit Data Collection New Patient or Established: Established Patient (seen at [facility] within 3 years) Reason for Visit:: LEFT TKA F/U Seen by Clinical Staff ONLY (RN/MA): No Community Health Coordinator Required: Yes PCP or OBGYN visit in last 3 months: Yes Hx Now: No Do You Feel Safe at Home: Yes Authorities Contacted: N/A Questionairres Past Medical History Past Medical History Have you ever been diagnosed with any of the following: Neurological Problems Seizures: No Cardiology Problems Hypercholesterolemia: Yes Congestive Heart Failure: No Hypertension: Yes Respiratory Problems Chronic Obstructive Pulmonary Disease (COPD): No Smoking: No Stomache/Intestinal Problems Hepatitis: No Obesity: Yes Genital/Urinary Problems Renal Disease: No Reproductive Problems Previous Pregnancies: Yes (4) Musculoskeletal Problems Arthritis: Yes Endocrine Problems Diabetes Mellitus Type 1: No Diabetes Mellitus Type 2: No Blood Problems Anemia: Yes Psychologic Problems Anxiety: Yes Other Problems Hospitalization: No Shingles: No Blood Transfusions: No Blood Transfusion Reaction: No Anesthesia Reactions: No Chicken Pox: Yes Measles: Yes Mumps: Yes Cancer: No Subjective Visit Visit for: follow up visit and knee Immunization / Flu Flu Vaccine in the Last 12 Months: Yes Flu Vaccine Exclusion Criteria: No Exclusion Criteria and Already Received History of Present Illness Chief complaint: LEFT TKA 2 MONTH F/U Date of injury / onset of symptoms: 07/19/24 Date of 1st surgery (if applicable): 07/19/24 Patient is here for her 10 weeks postop visit. She is doing well. She reports some pain but the pain is improving. She is starting to work more aggressively with physical therapy. Her range of motion is not great Personal History Occupation: DISABLED Red flag PMH: BMI and none BMI Counceling provided: Yes Pain Pain level (0-10): 9 Pain duration: ALL DAY Pain location: anterior and posterior Pain quality: burning, electric and tingling Pain timing: night, increases with activity and stairs Associated signs & symptoms: numbness, weakness and stiffness Ambulatory data Ambulatory device: walker and none Treatments Improvement with previous injections: No Improvement with PT: No Improvement with NSAIDS: no Review of Systems Review of Systems: All systems negative unless otherwise noted in HPI.
== END 2025-02-09 15:03 | disposition home or self-care (01) ==
PROVIDERS: Supervising Provider Orthopaedic Surgery Adult Reconstructive Orthopaedic Surgery; Visit Provider Orthopaedic Surgery Adult Reconstructive Orthopaedic Surgery
DX: Z09 Encounter for follow-up examination after completed treatment for conditions other than malignant neoplasm (principal); Z96.652 Presence of left artificial knee joint
CPT/HCPCS: 99213; G0463

== ENCOUNTER 2025-02-22 13:24 | Outpatient (AMB) | payer MEDICAID, SELFPAY ==
--- NOTE | 2025-02-22 13:37 | PD.ORTHCLVIS ---
Vital signs 02/22/25 13:38 Height 1.55 m Height Method Stated Weight 91.852 kg Weight Measurement Method Standing Scale BMI 38.2 BP 137/84 H Blood Pressure Source Automatic Cuff Blood Pressure Location Left Upper Arm Position Sitting Respiration 18 Pulse 81 Pulse Source Monitor Temp 97.7 F Temp Source Temporal Artery Scan Pulse Oximetry (%) 98 Oxygen Delivery Method Room Air Med/Allergies Allergies & Medications Allergies No Known Drug Allergies Allergy (Verified 02/22/25 13:43) Medication Reconciliation atorvastatin 20 mg tablet 20 mg PO HS 07/19/24 [History Confirmed 02/22/25] ergocalciferol (vitamin D2) 1,250 mcg (50,000 unit) capsule 1,250 mcg PO QWEEK 07/19/24 [History Confirmed 02/22/25] hydrochlorothiazide 25 mg tablet 25 mg PO DAILY 07/19/24 [History Confirmed 02/22/25] hydroxyzine HCl 10 mg tablet 10 mg PO Q12H 07/19/24 [History Confirmed 02/22/25] lisinopril 5 mg tablet 5 mg PO DAILY 07/19/24 [History Confirmed 02/22/25] ferrous sulfate 325 mg (65 mg iron) tablet (FeroSul) 325 mg PO DAILY 11/19/24 [History Confirmed 02/22/25] aspirin 81 mg tablet,delayed release 81 mg PO BID #60 tabs 11/24/24 [Rx Confirmed 02/22/25] doxycycline hyclate 100 mg tablet 100 mg PO BID #14 tabs 11/24/24 [Rx Confirmed 02/22/25] oxycodone 5 mg tablet 5 mg PO Q6H PRN pain #28 tabs 11/24/24 [Rx Confirmed 02/22/25] sennosides 8.6 mg-docusate sodium 50 mg tablet (Senna-S) 1 tab-cap PO QDAY #30 tabs 11/24/24 [Rx Confirmed 02/22/25] acetaminophen 500 mg tablet (Acetaminophen Extra Strength) 1,000 mg (2 x 500 mg) PO Q6H PRN pain #90 tabs 12/09/24 [Rx Confirmed 02/22/25] oxycodone 5 mg tablet 5 mg PO Q6H PRN pain #28 tabs 12/18/24 [Rx Confirmed 02/22/25] gabapentin 300 mg capsule 300 mg PO .qhs #30 caps 01/08/25 [Rx Confirmed 02/22/25] cyclobenzaprine 7.5 mg tablet 7.5 mg PO QHS PRN muscle spasm #30 tabs 01/21/25 [Rx Confirmed 02/22/25] oxycodone 5 mg tablet 5 mg PO Q6H PRN pain #28 tabs 01/21/25 [Rx Confirmed 02/22/25] cyclobenzaprine 5 mg tablet 5 mg PO QHS PRN muscle spasm #30 tabs 02/09/25 [Rx Confirmed 02/22/25] gabapentin 300 mg capsule 300 mg PO .qhs #30 caps 02/22/25 [Rx] Exam Exam Patient is in no acute distress and is cooperative with the examination today. Breathing is nonlabored. In no respiratory distress. Bilateral extremities were evaluated and demonstrates sensation intact to light touch. Palpable pedal pulses are present. No significant edema is present. Bilateral hips were examined. The patient has no pain with log roll of the hips. Internal rotation to 30 degrees and external rotation to 30 degrees is painless. Negative FADIR. Left knee incisions clean dry intact. Range of motion 0 to 95 degrees Assessment and Plan Problem List (1) Degenerative arthritis of knee, bilateral: Status: Acute Plan: Patient is doing well status post left total knee replacement . We Will see her in 3 weeks for routine follow-up. Her range of motion is not great and she only has 95 degrees of flexion. Extension is fine. We sent her back to physical therapy. I discussed manipulation under anesthesia and that she reports that she is afraid of it. Her motion is actually similar to the right side. At this point, we discussed that we we will make the decision not to pursue a manipulation under anesthesia. We will see the patient back in approximately 2 months for routine follow-up Office Procedures GNS Level of Care Nursing/Assessment Patient Status: Established Patient Nursing Assessment/Reassesment: Medication Reconciliation, Update PMH in EMR and Vital Signs Coordination of Care: Complex Care and Chronic Disease 1-5, Education Complex Pt/Fam, Consent,records obtained, informed consent, Results/Orders obtained and Staff clarify orders Established Patient Charge Established Patient Point Assignment: 95 Established Patient Point Charge: EP Level 3 (80-115) [place] Intake Visit Data Collection New Patient or Established: Established Patient (seen at [facility] within 3 years) Reason for Visit:: TKA MOTION CHECK Seen by Clinical Staff ONLY (RN/MA): No 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 PCP or OBGYN visit in last 3 months: Yes Hx Now: No Do You Feel Safe at Home: Yes Authorities Contacted: N/A Questionairres Past Medical History Past Medical History Have you ever been diagnosed with any of the following: Neurological Problems Seizures: No Cardiology Problems Hypercholesterolemia: Yes Congestive Heart Failure: No Hypertension: Yes Respiratory Problems Chronic Obstructive Pulmonary Disease (COPD): No Smoking: No Stomache/Intestinal Problems Hepatitis: No Obesity: Yes Genital/Urinary Problems Renal Disease: No Reproductive Problems Previous Pregnancies: Yes (4) Musculoskeletal Problems Arthritis: Yes Endocrine Problems Diabetes Mellitus Type 1: No Diabetes Mellitus Type 2: No Blood Problems Anemia: Yes Psychologic Problems Anxiety: Yes Other Problems Hospitalization: No Shingles: No Blood Transfusions: No Blood Transfusion Reaction: No Anesthesia Reactions: No Chicken Pox: Yes Measles: Yes Mumps: Yes Cancer: No Subjective Visit Visit for: follow up visit and knee Immunization / Flu Flu Vaccine in the Last 12 Months: Yes Flu Vaccine Exclusion Criteria: No Exclusion Criteria and Already Received History of Present Illness Chief complaint: LEFT TKA MOTION CHECK Date of injury / onset of symptoms: 07/19/24 Date of 1st surgery (if applicable): 07/19/24 Patient is here for her 12 weeks postop visit. She is doing well. She reports some pain but the pain is improving. She is starting to work more aggressively with physical therapy. Her range of motion is not great Personal History Occupation: DISABLED Red flag PMH: BMI and none BMI Counceling provided: Yes Pain Pain level (0-10): 9 Pain duration: ALL DAY Pain location: anterior and posterior Pain quality: burning, electric and tingling Pain timing: night, increases with activity and stairs Associated signs & symptoms: numbness, weakness and stiffness Ambulatory data Ambulatory device: walker and none Treatments Improvement with previous injections: No Improvement with PT: No Improvement with NSAIDS: no Review of Systems Review of Systems: All systems negative unless otherwise noted in HPI.
[2025-02-22 13:38] VITALS: BP 137/84; PULSE 81; RESP 18; TEMP 36.5; O2SAT 98; BMI 38.2
== END 2025-02-22 13:55 | disposition home or self-care (01) ==
LOC: HODSRG 13:24
PROVIDERS: Supervising Provider Orthopaedic Surgery Adult Reconstructive Orthopaedic Surgery; Visit Provider Orthopaedic Surgery Adult Reconstructive Orthopaedic Surgery
DX: Z47.1 Aftercare following joint replacement surgery (principal); Z96.652 Presence of left artificial knee joint; M17.11 Unilateral primary osteoarthritis, right knee; I10 Essential (primary) hypertension; E66.9 Obesity, unspecified; Z68.38 Body mass index [BMI] 38.0-38.9, adult
CPT/HCPCS: 99213; G0463